=== PATIENT | male | born 1960 | race Caucasian/White ===

== ENCOUNTER 2017-08-03 10:40 | Outpatient (CLI) | payer MEDICARE ==
--- NOTE | 2017-08-03 12:43 | RAD ---
PA AND LATERAL CHEST: Indication: History of dyspnea. FINDINGS: There is mild cardiomegaly with mild pulmonary vascular congestion. No confluent airspace opacity or pleural effusion is noted. No acute osseous abnormality is evident. There an endograft stent seen wit hin the soft tissues of the left upper extremity. IMPRESSION: 1. Stable cardiomegaly and mild pulmonary vascular congestion. 2. No focal airspace consolidation, pleural effusion, or pneumothorax demonstrated. POS: LOIDA
== END 2017-08-03 10:41 | disposition home or self-care (01) ==
LOC: RAD 10:40
PROVIDERS: ATTEND Internal Medicine Pulmonary Disease
DX: R06.00 Dyspnea, unspecified (principal); I51.7 Cardiomegaly; J81.1 Chronic pulmonary edema
CPT/HCPCS: 71020

== ENCOUNTER 2019-12-14 16:40 | Inpatient (IN) | payer MEDICARE, OTHER ==
[~2019-12-14 16:40] MED LIST: Iopamidol-370 76% 500 ML 1 ML ONE
[2019-12-14] MEDS ORDERED: Naloxone HCl 2 mg/2 ml Syringe ONE (16:45)
[2019-12-14] MEDS ORDERED: Phytonadione 10 MG/ML AMP SLOW IVP SCH (17:00)
[2019-12-14 17:01] LABS: #Basophils 0.1 thou/uL (0.0-0.2); #Lymphocytes 2.6 thou/uL (1.20-3.40); #Monocytes 0.7 thou/uL (0.11-0.59); #Neutrophils 4.8 thou/uL (1.40-6.50); %Basophils 0.7 % (0.0-1.0); %Eosinophils 10.6 % (0.0-10.0); %Lymphocytes 28.7 % (21.0-51.0); %Monocytes 7.2 % (0.0-10.0); %Neutrophils 52.7 % (42.0-75.0); Hemoglobin 9.1 g/dL (14.0-18.0); Mean Corpuscular HGB CONC 32.6 g/dL (32.0-36.0); Mean Corpuscular Volume 91.9 fL (78.0-98.0); Mean Platelet Volume 6.8 fL (7.4-10.4); Platelet Count 203 thou/uL (130-400); RBC Distribution Width 18.7 % (11.5-14.5); Red Blood Cell (RBC) Count 3.05 mill/uL (4.70-6.10); White Blood Cell (WBC) Count 9.1 thou/uL (4.8-10.8)
[2019-12-14] MEDS ORDERED: Adacel (T-DAP) 0.5 ML SYRINGE ONE (17:11)
[2019-12-14 17:14] LABS: ALT (SGPT) 9 U/L (8-55); AST (SGOT) 11 U/L (5-34); Albumin 3.9 g/dL (3.5-5.0); Alkaline Phosphatase 172 U/L (40-110); Anion Gap 21 mmol/L (10-20); BUN (Urea Nitrogen) 79 mg/dL (8.4-25.7); Bilirubin, Total 0.8 mg/dL (0.2-1.2); Calc. Creatinine Clearance 0 mL/min (70-130); Calcium 8.9 mg/dL (7.8-10.44); Carbon Dioxide 19 mmol/L (22-29); Chloride 101 mmol/L (98-107); Estimated GFR-MDRD 3; Globulin 4.3 g/dL (2.4-3.5); Glucose 174 mg/dL (70-105); Potassium 5.8 mmol/L (3.5-5.1); Protein, Total 8.2 g/dL (6.0-8.3); Sodium 135 mmol/L (136-145)
[2019-12-14 17:19] LABS: INR-International Normal Ratio 2.1; PTT 39.7 SEC (22.9-36.1); Prothrombin Time 23.8 SEC (12.0-14.7)
--- NOTE | 2019-12-14 17:20 | RAD ---
XR Chest 1 View Portable HISTORY: Fall. Chest pain, arm pain, elbow pain COMPARISON: None FINDINGS: The heart size is borderline. The lungs are well expanded without lobar consolidation, pneu mothoraces, azra pulmonary edema or pleural effusions. IMPRESSION: No radiographic evidence of acute cardiopulmonary process.
--- NOTE | 2019-12-14 17:22 | RAD ---
Radiograph left humerus 2 views: DATE: 12/14/2019 Time: 4:27 PM HISTORY: 59-year-old male status post acute traumatic injury with open fracture. FINDINGS: There is a comminuted, significantly displaced fracture of the distal humeral metaphysis, extending t o the elbow joint. The humeral shaft is intact. Hemodialysis graft or stents within the arm. IMPRESSION: Acute, traumatic, displaced intra-articular fracture of the distal humerus
[2019-12-14] MEDS ORDERED: HUMAN PROTHROMBIN COMPLX IV SCH (17:30)
[2019-12-14] MEDS ORDERED: [UNRECOGNIZED DRUG - OTHER] IV SCH (17:30)
[2019-12-14] MEDS ORDERED: HUM PROTHROMBIN CPLX IV SCH (17:30)
[2019-12-14 17:35] LABS: Bilirubin Small (Negative); Blood, Urine Moderate (Negative); Glucose, Urine (Dipstick) Negative (Negative); Leukocyte Small (Negative); Nitrite Positive (Negative); Protein, Urine (Dipstick) 100 mg/dL (Neg-Trace); Urobilinogen 0.2 mg/dL (Less than 2)
[2019-12-14 17:37] LABS: Clarity Cloudy (Clear)
[2019-12-14 17:40] LABS: Squamous Epithelial 0-3 HPF (0-3)
[2019-12-14 17:41] LABS: Bacteria/HPF 2+ HPF (None Seen); Renal Epithelial 0-3 HPF (None Seen)
[2019-12-14 17:42] LABS: Other Microscopic Description Less than 2 mL rec'd
[2019-12-14] MEDS ORDERED: Ketorolac Tromethamine 30 MG/ML VIAL ONE (17:45)
[2019-12-14 17:53] LABS: CKMB 11.6 ng/mL (0-6.6)
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
[2019-12-14] MEDS ORDERED: Dextrose 5% in Water 1,000 ML IV PRN (18:09)
[2019-12-14] MEDS ORDERED: Morphine 2 MG/ML SYRINGE SLOW IVP PRN (18:09)
[2019-12-14] MEDS ORDERED: Dextrose 50% Abboject 50 ML SYRINGE SLOW IVP PRN (18:09)
[2019-12-14] MEDS ORDERED: Morphine 4 MG/ML VIAL SLOW IVP PRN (18:09)
[2019-12-14] MEDS ORDERED: hydrALAZINE 20 MG/ML VIAL SLOW IVP PRN (18:09)
[2019-12-14] MEDS ORDERED: traMADol HCl 50 MG TAB PO PRN (18:18)
--- NOTE | 2019-12-14 18:24 | CT ---
CT CERVICAL SPINE WITH CORONAL AND SAGITTAL REFORMATIONS: 12/14/19 HISTORY: Level I trauma. FINDINGS/IMPRESSION: There are degenerative changes in the facet joints. There is a linear lucency noted on a single imag e on the sagittal reconstructions involving the right inferior articular process of C7 (image 22, ser ies 701). The remainder of the cervical spine is otherwise intact without evidence of a compression f racture of the vertebral bodies or subluxation. No facet malalignment is seen. Discussed over the telephone with ER physician, Dr. Kem Dee at 6:08 p.m. POS: VARGAS
--- NOTE | 2019-12-14 18:26 | CT ---
CT THORAX WITH CONTRAST CT ABDOMEN WITH CONTRAST CT PELVIS WITH CONTRAST CT THORACIC SPINE WITH CONTRAST CT LUMBAR SPINE WITH CONTRAST: (Trauma protocol) DATE: 12/14/2019 HISTORY: Trauma to the chest, abdomen, and pelvis in 59-year-old male status post fall. Dr. Jeffery verbally gave this report by telephone to ER physician Dr. Dee at 6:22 PM 12/14/2019 TECHNIQUE: IV administration of iodinated contrast media. No oral contrast media. Single phase scans of thorax, abdomen, and pelvis. Sagittal reconstructions of thoracic and lumbar spine. FINDINGS: Lungs: No contusion. Nonspecific diffuse, homogeneous groundglass prominent interstitial markings. No consolidation. No obvious pulmonary mass. Pleura: No pneumothorax or hemothorax. Thoracic aorta: No dissection or rupture. Mediastinum: No hematoma. Enlarged subcarinal lymph nodes. Enlarged right paratracheal lymph node leyda suring 3 x 2 x 2 cm. Abdomen and pelvis: Liver: No laceration Spleen: No laceration. Enlarged. Pancreas: No surrounding fluid or fat stranding. Kidneys: No hydronephrosis or laceration. Bladder: Empty with Nicholson catheter. Abdominal aorta: No dissection or rupture. Small bowel: No dilation. Colon: No adjacent fat stranding. Free air: None. Free fluid: None. Appendix: Normal. Subcutaneous fat: 2 bilateral anterior patchy soft tissue attenuation lesions, of uncertain etiology. Skeleton: Ribs: No grossly displaced acute fracture. Sternum: No grossly displaced acute fracture. Thoracic spine: No acute compression fracture. Lumbar spine: No acute compression fracture. Pelvis: No grossly displaced acute fracture. No dislocation. IMPRESSION: 1. No evidence of acute traumatic injury within the thorax, abdomen, or pelvis. 2. Splenomegaly. 3. Mediastinal lymphadenopathy.
[2019-12-14] MEDS ORDERED: Acetaminophen 500 MG TAB PO SCH (18:30)
[2019-12-14 18:50] LABS: Hemoglobin 8.8 g/dL (14.0-18.0); Platelet Count 172 thou/uL (130-400)
[2019-12-14] MEDS ORDERED: cefTRIAXone\\ROCEPHIN 1 GM VIAL ONE (18:54)
[2019-12-14] MEDS ORDERED: Phytonadione 10 MG in Sodium Chloride 0.9% 50 ML IVPB SCH (19:30)
[2019-12-14 20:06] LABS: Prothrombin Time 22.5 SEC (12.0-14.7)
[2019-12-14 20:07] LABS: PTT 41.1 SEC (22.9-36.1)
[2019-12-14 20:15] LABS: Lactic Acid 0.8 mmol/L (0.5-2.2)
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
[2019-12-14 22:20] LABS: INR-International Normal Ratio 1.5; PTT 37.1 SEC (22.9-36.1); Prothrombin Time 18.2 SEC (12.0-14.7)
[2019-12-14 22:40] LABS: Troponin I 0.094 ng/mL (< 0.028)
--- NOTE | 2019-12-14 23:42 | HP ---
HISTORY OF PRESENT ILLNESS: Amari Stanley is a 59-year-old male patient, who is on Coumadin for atrial fibrillation, has aortic valve replacement plans next week. He has end-stage renal disease, on maintenance dialysis Tuesday, , Tuesday, dialyzed yesterday, followed by Dr. Bynum. He is HIV positive. Patient stepped off a curb, fell and injured his elbow. He was brought in by EMS. GCS 15 by report. On arrival, however, he was markedly obtunded and pressure was difficult to obtain in the 70s to 80s. He had been given 300 mcg of fentanyl IV by report. Narcan was administered. Dr. Dee was managing the airway with oral airway, which he tolerated and bag-mask. After Narcan, patient awoke, became responsive, did not require intubation. His pressure improved after fluid bolus. Patient reported that he normally runs pressure in the 90s. This is verified by his carbon plant grinder. The patient has an open fracture of his distal humerus. Dr. Carlisle is seeing him. Patient was evaluated and he had pressures in the 90s to 100, one unit blood was initiated, was slowed as it was felt this was his chronic blood pressure and he was mentating normally. PHYSICAL EXAMINATION: LUNGS: Clear to auscultation. CARDIAC: Regular rate and rhythm. No murmur or gallop. ABDOMEN: Soft and obese. EXTREMITIES: A left arm fistula upper arm, I could not palpate a thrill. I do not hear a bruit but had a good Doppler signal. ALLERGIES: PENICILLIN AND SULFA. SOCIAL HISTORY: Tobacco, none. Alcohol, none. MEDICATIONS: 1. Zolpidem. 2. Protonix. 3. Metoprolol. 4. Metolazone. 5. Insulin. 6. Gabapentin. 7. Furosemide. 8. Fluoxetine. 9. Dexilant. 10. Aspirin. PAST SURGICAL HISTORY: Left upper arm fistula placed elsewhere, not at this facility. Right great toe amputation. Tonsillectomy. PAST MEDICAL HISTORY: End-stage renal disease, on hemodialysis, Tuesday, , Tuesday; hypertension; hyperlipidemia; diabetes mellitus, type 2; obesity; aortic valve problems; atrial fibrillation, on anticoagulation. IMAGING: CAT scan of the chest, abdomen, and pelvis; cervical spine CT and brain CAT scan are normal. Chest x-ray, no acute findings. LABORATORIES: PT 23, given Kcentra and repeat PT/INR are still elevated at and 2. Hemoglobin 8.8, white count 9. Sodium 135, potassium 5.8, carbon dioxide 19, and BUN 79. ASSESSMENT AND PLAN: 1. Open fracture, left distal humerus. Dr. Carlisle is seeing this. He has washed out. He placed him on antibiotics. He will probably go undergo ORIF tomorrow. 2. Left upper arm dialysis fistula. 3. End-stage renal disease. Consult Nephrology. Recheck electrolytes tomorrow. 4. Aortic valve surgery plan next week. 5. Chronic anticoagulation, atrial fibrillation. 6. Human immunodeficiency virus positive. Job ID: [id number]
[2019-12-15] MEDS: Acetaminophen 500 MG TAB PO SCH ×5 (00:45→23:17)
[2019-12-15] MEDS ORDERED: CEFAZOLIN 2 GM in Premix Bag 1 BAG IVPB SCH ×2 (02:00→23:59)
[2019-12-15] MEDS ORDERED: CEFAZOLIN 1 GM VIAL SLOW IVP SCH (02:00)
[2019-12-15] MEDS: Sodium Chloride 0.9% 1,000 ML IV SCH ×3 (02:11→22:34)
--- NOTE | 2019-12-15 03:08 | PRG ---
DATE OF SERVICE: SUBJECTIVE: Patient was seen in the emergency department as he had not left to go to the operating room. Due to his elevated INR, his procedure is being put off until the morning. The patient sustained an open left distal humerus fracture and he is on Coumadin. He came in with an INR of 2.1 and Kcentra was given along with vitamin K. his repeat INR was only 2.0. This is likely drawn too early from the finish of his Kcentra. We will repeat it later this evening and again in the morning. The patient's partner will be contacted and verify that he does run with a chronically low systolic blood pressure, normally in the 90s, except after his dialysis, which happened to be yesterday when he stays in the 80s. PHYSICAL EXAMINATION: VITAL SIGNS: Stable with systolics in the mid to upper 80s with one reading in the 90s. Patient is afebrile. GENERAL: The patient is resting comfortably. He is asleep at the time of my visit in the ER. He would awaken and answer some very simple questions and then fall back asleep. It was difficult to tell if he was having rebound effects of the 300 mcg of fentanyl he was given or he was just exhausted from this traumatic event. LUNGS: Clear to auscultation bilaterally. HEART: Regular rate and rhythm. ABDOMEN: Soft, nontender with active bowel sounds. EXTREMITIES: Neurovascularly intact x4. Patient did move all of his digits on his left hand for me to include give me a thumbs up. His sensation appeared to be grossly intact. ASSESSMENT/PLAN: 1. Status post fall. 2. Open left distal humerus fracture. 3. History of end-stage renal disease, on dialysis. 4. History of severe coronary artery disease and valvular disease pending aortic valve replacement surgery. Plan for next week at [facility]. 5. Chronic anticoagulation for atrial fibrillation. 6. Human immunodeficiency virus positive. PLAN: Plan will be to continue supportive care. Antibiotics per Orthopedics. Pain control pulmonary toilet, gastritis, mechanical VTE prophylaxis. The patient is due for dialysis tomorrow. We will consult Nephrology as from review of records it appears he has been seen a couple of times by our senior housekeeper, here at [facility]. Job ID: [id number]
[2019-12-15 05:22] LABS: INR-International Normal Ratio 1.4; PTT 35.5 SEC (22.9-36.1); Prothrombin Time 17.2 SEC (12.0-14.7)
[2019-12-15 05:34] LABS: Band 4 % (5-11); Eosinophils 4 % (0-10); Hemoglobin 8.1 g/dL (14.0-18.0); Hypochromia SLIGHT = 6-15 cells (100X) (0-5/hpf); Lymphocytes 13 % (21-51); MDiff Complete? YES; Mean Corpuscular HGB CONC 33.6 g/dL (32.0-36.0); Mean Corpuscular Hemoglobin 30.7 pg (27.0-31.0); Mean Corpuscular Volume 91.4 fL (78.0-98.0); Monocytes 6 % (0-10); Neutrophil 73 % (42-75); Platelet Count 168 thou/uL (130-400); Platelet Morphology Comment Appears Adequate; RBC Distribution Width 18.5 % (11.5-14.5); Red Blood Cell (RBC) Count 2.63 mill/uL (4.70-6.10); White Blood Cell (WBC) Count 8.8 thou/uL (4.8-10.8)
[2019-12-15 05:41] LABS: Anion Gap 22 mmol/L (10-20); BUN (Urea Nitrogen) 86 mg/dL (8.4-25.7); Calc. Creatinine Clearance 9 mL/min (70-130); Calcium 8.3 mg/dL (7.8-10.44); Carbon Dioxide 17 mmol/L (22-29); Chloride 103 mmol/L (98-107); Estimated GFR-MDRD 3; Glucose 149 mg/dL (70-105); Magnesium 2.5 mg/dL (1.6-2.6); Sodium 135 mmol/L (136-145)
[2019-12-15 05:44] LABS: Potassium 6.7 mmol/L (3.5-5.1)
[2019-12-15] MEDS ORDERED: Calcium Gluconate 4.6 MEQ in Sodium Chloride 0.9% 100 ML IVPB SCH (06:02)
[2019-12-15] MEDS ORDERED: Dextrose 50% Abboject 50 ML SYRINGE SLOW IVP SCH (06:10)
[2019-12-15] MEDS ORDERED: Insulin Regular 300 UNITS/3 ML VIAL IVP SCH (06:15)
[2019-12-15 07:02] LABS: Anion Gap 23 mmol/L (10-20); BUN (Urea Nitrogen) 85 mg/dL (8.4-25.7); Calc. Creatinine Clearance 9 mL/min (70-130); Calcium 8.2 mg/dL (7.8-10.44); Carbon Dioxide 17 mmol/L (22-29); Chloride 104 mmol/L (98-107); Estimated GFR-MDRD 3; Glucose 134 mg/dL (70-105); Sodium 137 mmol/L (136-145)
[2019-12-15 07:10] LABS: Potassium 6.6 mmol/L (3.5-5.1)
--- NOTE | 2019-12-15 07:37 | RAD ---
Radiograph left humerus 2 views: DATE: 12/15/2019 Time: 7.:11 AM HISTORY: Acute traumatic distal humeral fracture area COMPARISON: 12/14/2019 humerus radiograph. FINDINGS: Very comminuted fracture of distal radial metaphysis. Severe, greater than 200% shaft width medial di splacement of the medial fracture fragment relative to the diaphysis, along with medial displacement of the radius and ulna relative to the humerus. Disruption of the elbow joint. Posterior splint has been placed. The positioning is different on the current study compared to the previous, and therefore the degree of change in alignment is difficult to ascertain. For example, the re was no true AP view on the prior study,. IMPRESSION: Status post splinting of the severely comminuted, severely displaced, intra-articular fracture of the distal humerus involving the elbow joint with subluxation.
[2019-12-15] MEDS ORDERED: Hydrocortisone Sod Succ/PF 100 mg/2 ml Vial IVP SCH ×2 (08:30→18:00)
[2019-12-15] MEDS ORDERED: Fentanyl 100 MCG/2 ML VIAL ONE ×2 (09:39→21:30)
[2019-12-15] MEDS: Fentanyl 100 MCG/2 ML VIAL SLOW IVP PRN ×2 (09:43→23:13)
[2019-12-15] MEDS ORDERED: Norepinephrine 8 MG/0.9% NS 250 ML IVPB SCH (09:48)
[2019-12-15 10:36] LABS: Anion Gap 23 mmol/L (10-20); BUN (Urea Nitrogen) 86 mg/dL (8.4-25.7); Calc. Creatinine Clearance 9 mL/min (70-130); Calcium 8.6 mg/dL (7.8-10.44); Carbon Dioxide 17 mmol/L (22-29); Chloride 103 mmol/L (98-107); Estimated GFR-MDRD 3; Glucose 171 mg/dL (70-105); Potassium 6.3 mmol/L (3.5-5.1); Sodium 137 mmol/L (136-145)
[2019-12-15] MEDS ORDERED: Albumin 25% 25 GM/100 ML BOT IVPB PRN (11:52)
[2019-12-15 11:54] LABS: HBSAg Index 0.19 S/CO (0-0.99); Hep B Core Total Ab Non-Reactive (NonReactive); Hep B Core Total Index 0.18 S/CO (0-0.79); Hep B Surf Ag Non-Reactive S/CO (NonReactive); Hep C IgG Ab Non-Reactive (NonReactive)
[2019-12-15] MEDS ORDERED: PHENYLEPHRINE-NS 100 MCG/ML 10 ML SYRINGE ONE (11:55)
[2019-12-15] MEDS ORDERED: Rocuronium Bromide 10 MG/ML (10ML VIAL) ONE (11:55)
[2019-12-15 11:57] LABS: HBSAB Concentration 38.44 mIU/mL; Hep B Surf AB Reactive (NonReactive)
--- NOTE | 2019-12-15 13:33 | PRG ---
DATE OF SERVICE: 12/15/2019 SUBJECTIVE: Mr. Stanley had low blood pressure problems last night and was transferred to telemetry then the ICU. He is mentating normally. Pressure has been in the 80s to 90s. The patient states that when he dialyzes, his pressures are in the 70s to 80s or 90s. Normally, he is just over 100. The patient however is mentating normally. This morning, his hemoglobin is 8.1, white count 8.8, platelet count 168,000. Potassium is 6.6, early this morning repeat is 6.3. I attempted to dialysis using his left upper arm fistula, was unable to access as this is thrombosed. I just placed a femoral vein Trialysis catheter. Trialysis catheter can be used for IV access and blood draws. It will serve him for dialysis. OBJECTIVE: LUNGS: Clear to auscultation. CARDIAC: Regular rate and rhythm. ABDOMEN: Soft, obese. ASSESSMENT AND PLAN: 1. Open left humeral fracture. I discussed with Dr. Carlisle with a patent fistula, the tourniquet should not be used, but now that the fistula is thrombosed, a tourniquet can be used intraoperatively. Orthopedics is planning ORIF of his left humerus fracture later today. 2. Patient at [facility], follow up with Dr. Lowell Suresh, plan aortic valve procedure in the next week or two. He is on anticoagulation, atrial fibrillation. He has had a cardiac cath and the patient tells me he does not have any significant coronary artery disease. I have discussed this with Dr. Lowell Suresh and he is updated on the patient's status. 3. Thrombosed fistula, left arm. This fistula was placed in [facility] 6 to 7 years ago. He has had multiple interventions in [place] to maintain its patency. He has had stents placed. Currently the fistula is thrombosed and a tourniquet can be used intraoperatively during the orthopedic procedure. After the orthopedic procedure, Interventional Radiology at [facility] should be requested to do a fistulogram to see if they can salvage this fistula. If they cannot, he may need a cuffed tunneled dialysis catheter just to give him dialysis access. Currently he has a temporary noncuffed femoral vein catheter. 4. Dialysis fistula left arm. He has had multiple interventions. Looking at his chest x-ray, I do not see any stents in the central circulation. He reports having had stents in the left upper arm fistula. We will obtain ultrasound vein mapping of the right arm to assess his right arm for dialysis access. We will ask nurses not to access the right arm and use the left groin dialysis catheter for IV access and blood draws and save the veins in the right arm for future dialysis access as he has a failing fistula left arm. I have told the patient he can follow up with me in the future should he need a new fistula or he can follow up with his other dialysis access physicians out of town. 5. HIV positive. 6. Transfer to [facility]. 7. Normally low blood pressure, patient mentating normal. He is anemic. We will give him blood during dialysis as well address his hyperkalemia. This will optimize him for ORIF of his left humerus fracture later today or tomorrow per Ortho discussion with Dr. Carlisle. Job ID: [id number]
--- NOTE | 2019-12-15 13:34 | CON ---
DATE OF CONSULTATION: 12/15/2019 CONSULTING PHYSICIAN: John Ybarra PA-C REASON FOR CONSULTATION: End-stage renal disease evaluation. REASON FOR ADMISSION: Fall and elbow fracture. HISTORY OF PRESENT ILLNESS: This is a 59-year-old male with history of end-stage renal disease and type 2 diabetes, came to the hospital after a fall and left elbow pain on and is being evaluated. He gets dialysis Tuesday, , and Tuesday. Apparently, his fistula is not working and is getting temporary dialysis catheter. Also, he will be moved to [facility] after the surgery today. Surgery is also planned today. PAST MEDICAL HISTORY: Positive for type 2 diabetes, end-stage renal disease, and gastroesophageal reflux disease. PAST SURGICAL HISTORY: Dialysis access placement. HOME MEDICATIONS: Reviewed. ALLERGIES: 1. SULFA. 2. PENICILLIN. SOCIAL HISTORY: No smoking, alcohol, or illicit drugs. FAMILY HISTORY: No history of kidney disease. REVIEW OF SYSTEMS: CONSTITUTIONAL: Negative for weight loss or gain, ability to conduct usual activities. SKIN: Negative for rash, itching. EYES: Negative for double vision, pain. ENT/MOUTH: Negative for nose bleeding, neck stiffness, pain, tenderness. CARDIOVASCULAR: Negative for palpitations, dyspnea on exertion, orthopnea. RESPIRATORY: Negative for shortness of breath, wheezing, cough, hemoptysis, fever or night sweats. GASTROINTESTINAL: Negative for poor appetite, abdominal pain, heartburn, nausea, vomiting, constipation, or diarrhea. GENITOURINARY: Negative for urgency, frequency, dysuria, nocturia. MUSCULOSKELETAL: Negative for pain, swelling. NEUROLOGIC/PSYCHIATRIC: Negative for anxiety, depression. ALLERGY/IMMUNOLOGIC: Negative for skin rash, bleeding tendency. PHYSICAL EXAMINATION: GENERAL: This is a well-built male, in no apparent distress. VITAL SIGNS: Temperature 98.7, pulse 105, respiratory rate 20, blood pressure 99/56. HEENT: Atraumatic and normocephalic. Oral mucosa is moist. NECK: Supple. CV: S1 and S2. Rate and rhythm regular. RESPIRATORY: Clear. GI: Abdomen is soft. MUSCULOSKELETAL: 1+ edema. DERMATOLOGIC: No skin rash. NEUROLOGIC: Alert and awake. PSYCHIATRIC: Normal mood and affect. LABORATORY DATA: Hemoglobin is 8.1. Potassium is 6.3, BUN is 86, creatinine 15.7. ASSESSMENT AND PLAN: 1. End-stage renal disease. We will continue on dialysis. 2. Edema. 3. History of hypertension. 4. Chronic anemia. 5. Hyperphosphatemia. We will continue on dialysis as tolerated. Thank you for the consult. Job ID: [id number]
[2019-12-15 15:07] LABS: Hemoglobin 9.7 g/dL (14.0-18.0); Platelet Count 149 thou/uL (130-400)
[2019-12-15 15:33] LABS: Anion Gap 20 mmol/L (10-20); BUN (Urea Nitrogen) 52 mg/dL (8.4-25.7); Calc. Creatinine Clearance 14 mL/min (70-130); Calcium 8.8 mg/dL (7.8-10.44); Carbon Dioxide 22 mmol/L (22-29); Chloride 101 mmol/L (98-107); Estimated GFR-MDRD 6; Glucose 150 mg/dL (70-105); Potassium 4.2 mmol/L (3.5-5.1); Sodium 139 mmol/L (136-145)
[2019-12-15] MEDS: CEFAZOLIN 2 GM in Premix Bag 1 BAG IVPB SCH ×3 (16:45→22:28)
[2019-12-15] MEDS ORDERED: SUGAMMADEX SODIUM 500 MG/5 ML VIAL ONE (17:05)
[2019-12-15] MEDS ORDERED: Gabapentin 100 MG CAP PO PRN (17:06)
[2019-12-15] MEDS ORDERED: Simethicone Chewable 80 MG TAB PO PRN (18:07)
[2019-12-15] MEDS ORDERED: hydrOXYzine 10 MG TAB PO PRN (18:07)
[2019-12-15] MEDS ORDERED: Midodrine HCl 5 MG TAB PO SCH (18:15)
--- NOTE | 2019-12-15 20:33 | RAD ---
LEFT ELBOW TWO VIEWS: 12/15/19 HISTORY: Comminuted distal humeral fracture. FINDINGS/IMPRESSION: Two spot fluoroscopic intraoperative images of the left elbow demonstrate interval reduction and int ernal fixation of the fractures noted on the earlier exam of same date. Plate and screws are seen in the distal humerus and a screw is seen in the proximal ulna/olecranon. POS: LOIDA
[2019-12-15] MEDS ORDERED: Promethazine HCl 25 MG/ML VIAL SLOW IVP PRN (20:55)
[2019-12-15] MEDS ORDERED: Ondansetron HCl/PF 4 MG/2 ML Vial IVP PRN (20:55)
[2019-12-15] MEDS ORDERED: Promethazine HCl 25 MG/ML VIAL IM PRN (20:55)
[2019-12-15] MEDS ORDERED: Norepinephrine 4 MG/4 ML VIAL ONE ×2 (20:59→21:00)
[2019-12-15] MEDS ORDERED: Metoprolol Tartrate 25 MG TAB PO SCH (21:00)
[2019-12-15] MEDS ORDERED: Non-Formulary Item 1 EACH (Insulin Glargine,Hum.Rec.Anlog [Basaglar Kwikpen U-100] 65 UNI SQ SCH (21:00)
[2019-12-15] MEDS ORDERED: Cyclobenzaprine 10 MG TAB PO PRN (21:22)
[2019-12-15] MEDS: Atorvastatin Calcium 40 MG TAB PO SCH (22:26)
[2019-12-15] MEDS: Insulin Glargine 65 UNITS in Pre-Filled Syringe SC SCH (22:27)
[2019-12-15] MEDS: Montelukast Sodium 10 mg Tablet PO SCH (22:27)
[2019-12-15] MEDS: Hydrocortisone Sod Succ/PF 100 mg/2 ml Vial IVP SCH (22:27)
[2019-12-15 22:31] LABS: #Eosinphils 0.3 thou/uL (0.0-0.7); #Monocytes 0.6 thou/uL (0.11-0.59); #Neutrophils 8.2 thou/uL (1.40-6.50); %Basophils 0.3 % (0.0-1.0); %Monocytes 5.6 % (0.0-10.0); %Neutrophils 81.1 % (42.0-75.0); Hemoglobin 9.3 g/dL (14.0-18.0); Mean Corpuscular HGB CONC 33.9 g/dL (32.0-36.0); Mean Corpuscular Hemoglobin 30.8 pg (27.0-31.0); Mean Corpuscular Volume 90.7 fL (78.0-98.0); Mean Platelet Volume 6.7 fL (7.4-10.4); Platelet Count 142 thou/uL (130-400); RBC Distribution Width 18.1 % (11.5-14.5); Red Blood Cell (RBC) Count 3.03 mill/uL (4.70-6.10); White Blood Cell (WBC) Count 10.1 thou/uL (4.8-10.8)
[2019-12-15 22:49] LABS: Anion Gap 18 mmol/L (10-20); BUN (Urea Nitrogen) 43 mg/dL (8.4-25.7); Calc. Creatinine Clearance 14 mL/min (70-130); Calcium 8.4 mg/dL (7.8-10.44); Carbon Dioxide 23 mmol/L (22-29); Chloride 101 mmol/L (98-107); Estimated GFR-MDRD 6; Glucose 172 mg/dL (70-105); Potassium 4.4 mmol/L (3.5-5.1); Sodium 138 mmol/L (136-145)
[2019-12-15 23:00] LABS: Phosphorus 8.1 mg/dL (2.3-4.7)
[2019-12-15] MEDS: Furosemide 80 MG TAB PO SCH (23:13)
--- NOTE | 2019-12-16 00:17 | PRG ---
DATE OF SERVICE: 12/15/2019 SUBJECTIVE: The patient's hospital day #2. He is immediately postop from open reduction and internal fixation of his left distal humerus fracture. The patient has a significant history of end-stage renal disease, requiring dialysis, which prior to dialysis today. He was hyperkalemic and was unable to go to the OR at this scheduled time. The patient was able to undergo dialysis and eventually made it to the operating room. He had multiple episodes of hypotension prior to surgery and intraoperatively, and once he arrived at the critical care unit, he was on Levophed at 5 mcg per minute, which brought his blood pressure systolic to 109. The patient also suffers from atrial fibrillation, requiring anticoagulation, but also delayed his surgery until today. OBJECTIVE: VITAL SIGNS: Heart rate 108, blood pressure 109/70, respirations 17, oxygen saturation 98% on 2 L via nasal cannula, temperature is 99.9. GENERAL: The patient is resting comfortably in bed. He is very sleepy as he has just returned from the operating room. He will awaken and was able to follow commands and interact with the nurses. LUNGS: Had some scattered rhonchi bilaterally that clear with coaching and deep inspiration and cough. HEART: Irregularly irregular consistent with his atrial fibrillation. ABDOMEN: Soft, nontender. EXTREMITIES: Neurovascularly intact x4. Left upper extremity is in a clean, dry, and intact long posterior splint. He is moving all digits and has sensation in all his digits. ASSESSMENT AND PLAN: 1. Status post ground level fall. 2. Open left distal humerus fracture, status post open reduction and internal fixation of same to include irrigation and debridement. 3. End-stage renal disease, on dialysis. 4. History of severe coronary artery disease and valvular disease, pending aortic valve replacement. 5. Atrial fibrillation, requiring anticoagulation. 6. Human immunodeficiency virus positive. 7. Hyperkalemia, resolved after dialysis. 8. [id number] anemia. The patient was transfused 2 units of packed red blood cells. PLAN: Plan will be to continue supportive care. Encourage pulmonary toilet. Monitor his electrolytes. We will begin wean of his vasopressor. Job ID: [id number]
[2019-12-16] MEDS: Ondansetron ODT 4 MG TAB PO PRN (03:37)
[2019-12-16 04:32] LABS: #Eosinphils 0.2 thou/uL (0.0-0.7); #Lymphocytes 0.8 thou/uL (1.20-3.40); #Monocytes 0.6 thou/uL (0.11-0.59); #Neutrophils 7.9 thou/uL (1.40-6.50); %Basophils 0.5 % (0.0-1.0); %Eosinophils 1.7 % (0.0-10.0); %Lymphocytes 8.2 % (21.0-51.0); %Monocytes 6.1 % (0.0-10.0); %Neutrophils 83.5 % (42.0-75.0); Hemoglobin 8.7 g/dL (14.0-18.0); Mean Corpuscular HGB CONC 33.5 g/dL (32.0-36.0); Mean Corpuscular Hemoglobin 30.4 pg (27.0-31.0); Mean Corpuscular Volume 90.7 fL (78.0-98.0); Platelet Count 144 thou/uL (130-400); Red Blood Cell (RBC) Count 2.85 mill/uL (4.70-6.10); White Blood Cell (WBC) Count 9.5 thou/uL (4.8-10.8)
[2019-12-16 04:56] LABS: Anion Gap 19 mmol/L (10-20); BUN (Urea Nitrogen) 47 mg/dL (8.4-25.7); Calc. Creatinine Clearance 14 mL/min (70-130); Calcium 8.2 mg/dL (7.8-10.44); Carbon Dioxide 22 mmol/L (22-29); Chloride 100 mmol/L (98-107); Estimated GFR-MDRD 5; Glucose 186 mg/dL (70-105); Phosphorus 8.4 mg/dL (2.3-4.7); Potassium 4.4 mmol/L (3.5-5.1); Sodium 137 mmol/L (136-145)
--- NOTE | 2019-12-16 05:22 | OP ---
DATE OF PROCEDURE: 12/15/2019 PREOPERATIVE DIAGNOSES: 1. End-stage renal disease, left arm fistula placed 6 or 7 years ago out of town, multiple interventions with stents in the arm portion of fistula placed [facility] in [place], thrombosed left arm fistula, dialysis fistula malfunction, hyperkalemia. 2. Open left humeral fracture and need of ORIF. 3. Aortic valve stenosis, planning aortic valve procedure by Dr. Lowell Suresh in the next few weeks, on oral anticoagulation status post Kcentra reversal last night. 4. Morbid obesity. POSTOPERATIVE DIAGNOSES: 1. End-stage renal disease, left arm fistula placed 6 or 7 years ago out of town, multiple interventions with stents in the arm portion of fistula placed [facility] in [place], thrombosed left arm fistula, dialysis. He has a malfunction, hyperkalemia. 2. Open left humeral fracture and need of ORIF. 3. Aortic valve stenosis, planning aortic valve procedure by Dr. Lowell Suresh in the next few weeks, on oral anticoagulation status post Kcentra reversal last night. 4. Morbid obesity. PROCEDURE PERFORMED: Left femoral vein Trialysis catheter. ANESTHESIA: 1% Xylocaine. DESCRIPTION OF PROCEDURE: With the patient at bedside, left groin, abdomen, and thigh prepared with ChloraPrep and draped in routine fashion. My orthotics assistant had retracted his pannus for visualization of his groin. His obesity made access difficult. Local anesthetic was infiltrated in the skin and subcutaneous tissue. 1% Xylocaine was used. Trocar catheter accessed the femoral vein, threading a J-wire. Seldinger technique used. Using a small and medium sized dilators and placed in the distal port of the Trialysis catheter, secured with 3-0 nylon suture and J-wire removed. Each IV access port aspirated blood, flushed with heparinized saline solution, hep flush solution. Each dialysis port aspirated blood and connected to the dialysis machine. Sterile dressing applied. Job ID: [id number]
[2019-12-16] MEDS: Acetaminophen 500 MG TAB PO SCH ×4 (05:52→23:40)
[2019-12-16] MEDS: CEFAZOLIN 2 GM in Premix Bag 1 BAG IVPB SCH ×2 (05:52→16:17)
[2019-12-16] MEDS: Hydrocortisone Sod Succ/PF 100 mg/2 ml Vial IVP SCH ×4 (05:52→23:40)
[2019-12-16] MEDS: HumaLOG 300 UNITS/3 ML VIAL SC PRN ×2 (06:05→23:39)
[2019-12-16 06:15] LABS: INR-International Normal Ratio 1.3; PTT 35.1 SEC (22.9-36.1); Prothrombin Time 16.3 SEC (12.0-14.7)
[2019-12-16] MEDS: Mometasone 200 MCG/Formoterol 5 MCG 120 PUFF INHALER INH SCH ×2 (07:43→18:50)
[2019-12-16] MEDS: Furosemide 80 MG TAB PO SCH ×2 (07:52→20:37)
[2019-12-16] MEDS ORDERED: HYDROcodone/Acetaminophen 5/325 mg Tablet PO PRN ×2 (08:02→14:12)
--- NOTE | 2019-12-16 09:10 | ULT ---
ULTRASOUND VESSEL MAPPING DIALYSIS ACCESSS: Date; 12/16/2019 HISTORY: End-stage renal disease. COMPARISON: None. TECHNIQUE: Real-time Suresh scale and color Doppler and spectral analysis of the right upper extremity arterial an d venous system performed. FINDINGS: RIGHT UPPER EXTREMITY BRACHIAL ARTERY: 0.4 cm RADIAL ARTERY: 0.19 cm ULNAR ARTERY: 0.16 cm CEPHALIC VEIN Proximal Arm: 0.54 cm Mid Arm: 0.55 cm Distal Arm: 0.54 cm Antecubital Fossa: 0.77 cm Proximal Forearm: 0.39 cm Mid Forearm: 0.38 cm Distal Forearm: 0.33 cm BASILIC VEIN Proximal Arm: 0.43 cm Mid Arm: 0.61 cm Distal Arm: 0.56 cm Antecubital Fossa: 0.41 cm Proximal Forearm: 0.19 cm Mid Forearm: 0.25 cm Distal Forearm: 0.22 cm The right internal jugular and subclavian veins are patent. Axillary vein is patent. IMPRESSION: Vascular size as above. POS: HOME
[2019-12-16] MEDS: HumaLOG 300 UNITS/3 ML VIAL SC SCH ×3 (10:21→17:28)
[2019-12-16] MEDS: Icosapent Ethyl 1 GM CAPSULE PO SCH ×2 (10:21→17:21)
[2019-12-16] MEDS: Sevelamer Carbonate 800 MG TAB PO SCH ×3 (10:21→17:19)
[2019-12-16] MEDS: FLUoxetine HCl 20 MG CAP PO SCH (10:29)
[2019-12-16] MEDS: Gabapentin 300 MG CAP PO SCH (10:29)
[2019-12-16] MEDS: Folic Acid/Vit B Comp W-C PO SCH (10:30)
[2019-12-16] MEDS: Insulin Glargine 65 UNITS in Pre-Filled Syringe SC SCH ×3 (11:07→23:39)
--- NOTE | 2019-12-16 11:44 | PRG ---
DATE OF SERVICE: 12/16/2019 Amari Stanley is doing well today. I have spoken with the patient, and I have also talked to his partner, Basil. The patient has had a left arm fistula established 6 to 7 years ago. He has been seeing a vascular surgeon in [place] intermittently for interventions to maintain its patency. He has a long segmental stent. Javier Willis MD, vasculature surgeon in [place], saw him last, performed intervention of his fistula and told him that this fistula is failing and it would not be worth and that the patient should think about establishing another fistula. I have talked to the patient and Basil regarding this, and considering this, we will discontinue Interventional Radiology consult for intervention tomorrow and instead plan a new right arm fistula. Ultrasound vein mapping of right arm reveals good veins for fistula, possibly [place] if the vein has not been ruined by IV access in this hospitalization as he had a mid right forearm IV on admission. We will plan placement of a hemodialysis catheter and a right arm fistula tomorrow or Tuesday, pending OR availability. We will plan this under regional anesthesia and TIVA. We would not resume his anticoagulation for that reason. The patient has intermittent blood pressure problems in the 80s to 90s, and thus, will be left on in the ICU. He has a planned TAVR procedure by Dr. Lowell Suresh in the next few weeks. He had a cardiac catheterization, revealing no significant coronary artery disease, but just severe aortic valve disease, for which he is undergoing a percutaneous treatment in the next [address] Lowell Suresh. I have discussed with the patient and his partner, Basil, that the patient after ORIF of left humerus, he will have poor use of his left arm and for 12 to 24 hours after his surgery, he will have poor use of his right arm after the regional anesthesia and he will need excess help and we will observe in the hospital for a day or two after the surgery until he can be discharged home. Of note is that the patient requested to be transferred to [facility], but the orthopedic surgeon refused acceptance as he was not comfortable taking care of his left humerus fracture, thus it was performed here by Dr. Carlisle. Hemoglobin 8.7, white count 9.5. Electrolytes are normal except for changes consistent with end-stage renal disease. No other complaints. HIV status noted. Job ID: [id number]
[2019-12-16] MEDS ORDERED: Albumin 25% 25 GM/100 ML BOT IVPB SCH (12:43)
[2019-12-16] MEDS ORDERED: Albumin 25% 25 GM/100 ML BOT IVPB PRN (12:52)
[2019-12-16] MEDS ORDERED: HYDROcodone/Acetaminophen 5/325 mg Tablet PO SCH ×2 (14:00→18:00)
--- NOTE | 2019-12-16 14:49 | OP ---
DATE OF PROCEDURE: 12/15/2019 PREOPERATIVE DIAGNOSIS: Grade 1 open severely comminuted intra-articular distal humerus fracture, left. POSTOPERATIVE DIAGNOSIS: Grade 1 open severely comminuted intra-articular distal humerus fracture, left. PROCEDURES PERFORMED: 1. Irrigation open reduction and internal fixation of left distal humerus. 2. Irrigation and debridement of left open distal humerus fracture. ANESTHESIA: General. COMPRESSED [employer] WORKER: Wayne Herndon PA-C TOURNIQUET TIME: 130 minutes at 250 mmHg. IMPLANTS: Synthes System was used with a posterolateral distal humeral plate and an extended medial distal humeral plate 2.7/3.5 mm variable angle. COMPLICATIONS: None. DRAINS: None. SPECIMENS: None. OUTCOME: Satisfactory stabilization of comminuted left distal humerus fracture. INDICATIONS FOR PROCEDURE: The patient is a 59-year-old gentleman, status post fall upon curb, sustaining a grade 1 open severely comminuted left distal humerus fracture. The patient came in with an INR of 2.1 and unfortunately, we had to wait for the INR to be reversed. During the process of reversal, his potassium robert to 6.7, necessitating dialysis before we can safely proceed with general anesthetic. The patient now taken to the operating room for open reduction and internal fixation. Informed consent has been obtained. I believe, all questions have been answered. DESCRIPTION OF PROCEDURE: The patient was brought to the operating room and a time-out performed followed by induction of general anesthesia. Next, he was positioned in the right lateral decubitus position and a sterile prep and drape was performed of the left upper extremity. The limb was exsanguinated with Esmarch bandage, tourniquet inflated to 250 mmHg. A midline posterior incision was made following the distal half of the humerus and then curving around the tip of the olecranon after skin was sharply incised. Dissection was carried down bluntly exposing the triceps muscle. Next, the ulnar nerve was dissected free and isolated. Next, an olecranon osteotomy using a chevron type cut was performed. This was then used to peel back to the triceps, exposing the distal humerus and distal humeral shaft. Care was taken to identify and protect the ulnar nerve during the course of this procedure. Upon exposure of this fracture, he was found to have severe comminution. The entire lateral column was essentially fragmented into many, many very small pieces that were not capable of holding any type of screw or hardware stabilization. This wound was then irrigated with 2 L of normal saline using Pulsavac. He was found to have a small laceration with surrounding abrasion at the posterolateral aspect of the elbow. This being the open wound. This was thoroughly irrigated with Pulsavac. No foreign material was encountered. Following the debridement, attention was placed to reconstruction. I started on the medial column of the elbow as this was only broken into 4 pieces. This was able to be pieced together and held in place provisionally with a combination of bone tenaculums and K-wires. Once done, the attention was placed on the lateral column. This too was somewhat pieced together with multiple small areas of missing bone. Once it was brought to a reasonable level and held in place with K-wires, provisional x-ray was obtained that showed gnosticism of gross architecture of the distal humerus. It should be noted that the fossa was severely comminuted and this bone really not able to be reconstructed. This bone was saved on the back table to be used for a local bone graft. Once the K-wire stabilization was achieved, initial posterolateral column plate was applied. This was held in place with 3.5 mm cortical screw proximally and then multiple small locking screws distally capturing some of the articular segment. The articular surface distally was comminuted into 5 pieces. This had been reconstructed and held in place with two K-wires along with reconstruction of both columns. Once the posterolateral plate was applied, a medial plate was also applied with the distal more screws going from the medial column capturing the distal humeral articular segment as well. Additional cortical screws were then placed proximal to the main fracture. With completion of this, the overall gnosticism of the distal humerus, was such that the gross architecture was restored. The articular surface was nicely reconstructed, but he was still missing the central fossa bone. As such, the previously removed cancellous bone fragments were morselized and these were packed to help reinforce the medial and lateral columns. At the completion of this, final AP and lateral C-arm images were obtained. The wound was again irrigated with normal saline. Next, the olecranon osteotomy was repaired using a 6.5 cannulated screw in an intramedullary canal fashion. This achieved excellent compression across the osteotomy site with stable fixation. The wound again irrigated. Then, wound closure performed. A fascial closure was achieved over the ulnar nerve and then fascial closure at the lateral triceps also performed. This was followed by 2-0 Vicryl and then lexi for the skin and a loose nylon suture for the small open wound. The arm was dressed with Xeroform and gauze and then placed in a posterior fiberglass splint. The tourniquet was let down prior to the completion of hardware placement with total time of 130 minutes. There were no complications. The patient did tolerate the procedure well. Job ID: [id number]
--- NOTE | 2019-12-16 16:15 | PRG ---
DATE OF SERVICE: 12/16/2019 SUBJECTIVE: Patient was seen and examined at bedside and overnight events noted. Patient denies any shortness of breath or chest pain or palpitation. No history of nausea or vomiting or diarrhea or fever or chills or cramps. OBJECTIVE: GENERAL: This is an obese male, in no apparent distress. VITAL SIGNS: Temperature 97.9. Heart rate 126. Respiratory rate 18. Blood pressure 105/73. HEENT: Atraumatic, normocephalic. Oral mucosa is moist. NECK: Supple. CARDIOVASCULAR: S1, S2 heard. Rate and rhythm regular. RESPIRATORY: Clear to auscultation. GASTROINTESTINAL: Abdomen is soft. MUSCULOSKELETAL: No tenderness. No edema. DERMATOLOGIC: No skin rash. NEUROLOGIC: Alert and awake and oriented x3. No focal neurologic deficits. Moving all the extremities. PSYCHIATRIC: Mood and affect normal. LABORATORY DATA: Potassium 4.4, BUN is 47, and creatinine is 10.4. ASSESSMENT AND PLAN: 1. End-stage renal disease. We will continue dialysis. Plan is to have extra dialysis today for fluid removal. 2. Hypotension. We will use albumin. 3. Edema. 4. Chronic anemia. 5. Hyperphosphatemia. Monitor labs. Continue dialysis as tolerated. Job ID: [id number]
[2019-12-16] MEDS: Darunavir/Cobicistat [Prezcobix 800 Mg-150 Mg Tablet] PO SCH (17:25)
[2019-12-16] MEDS ORDERED: HYDROcodone/Acetaminophen 7.5/325 mg Tablet PO PRN (20:22)
[2019-12-16] MEDS: Atorvastatin Calcium 40 MG TAB PO SCH (20:37)
[2019-12-16] MEDS: Heparin 5,000 UNITS/ML VIAL SC SCH (20:37)
[2019-12-16] MEDS: Montelukast Sodium 10 mg Tablet PO SCH (20:37)
[2019-12-16] MEDS: DOLUTEGRAVIR SODIUM 50 MG PO SCH (20:38)
--- NOTE | 2019-12-16 22:26 | PRG ---
DATE OF SERVICE: SUBJECTIVE: The patient is hospital day 3. He remains in a critical care unit, status post ground level fall, in which he sustained a left open distal humerus fracture. Yesterday, he underwent open reduction and internal fixation of same to include irrigation and debridement. Today, he underwent dialysis and he is being weaned off his Levophed. At the time of my visit, his pain was moderately controlled. We will make adjustments to his pain regimen. He is tolerating a diet and has been able to be out of bed to a chair. PHYSICAL EXAMINATION: VITAL SIGNS: Stable. The patient is still having some tachycardia, likely related to his pain, but also he revealed us that he stays above 100, especially after dialysis and his fondant machine operator is aware of this in light of his atrial fibrillation also. GENERAL: The patient is resting comfortably in bed. He is awake, alert, and oriented, this is the best I have seen him so far. RESPIRATIONS: Nonlabored. LUNGS: Clear to auscultation bilaterally. HEART: Irregularly irregular consistent with his atrial fibrillation. ABDOMEN: Soft, nontender with active bowel sounds. EXTREMITIES: Neurovascularly intact x4. Left upper extremity postop dressing is clean, dry, and intact to include this splint. ASSESSMENT: 1. Status post ground level fall. 2. Status post day 1 from irrigation and debridement and open reduction and internal fixation of left open distal humerus fracture. 3. End-stage renal disease, on dialysis. 4. History of severe coronary artery disease and valvular disease, pending aortic valve replacement. 5. History of atrial fibrillation, requiring anticoagulation. 6. Human immunodeficiency virus positive. 7. Acute on chronic anemia, stable. 8. Fistula clotted, requiring new fistula placement, scheduled for tomorrow. The patient is currently n.p.o. after midnight. PLAN: Plan will be to continue supportive care. Encourage physical and occupational therapy. As previously stated, n.p.o. after midnight for dialysis fistula placement and discuss placement postoperatively. Job ID: [id number]
[2019-12-17] MEDS: Amiodarone 450 MG in Dextrose 5% in Water 250 ML IVPB SCH ×2 (01:04→09:17)
[2019-12-17 04:17] LABS: Anion Gap 23 mmol/L (10-20); BUN (Urea Nitrogen) 53 mg/dL (8.4-25.7); Calc. Creatinine Clearance 13 mL/min (70-130); Calcium 9.5 mg/dL (7.8-10.44); Carbon Dioxide 20 mmol/L (22-29); Chloride 95 mmol/L (98-107); Estimated GFR-MDRD 5; Glucose 231 mg/dL (70-105); Magnesium 2.2 mg/dL (1.6-2.6); Phosphorus 10.2 mg/dL (2.3-4.7); Potassium 4.6 mmol/L (3.5-5.1); Sodium 133 mmol/L (136-145)
[2019-12-17 04:55] LABS: #Eosinphils 0.1 thou/uL (0.0-0.7); #Lymphocytes 0.5 thou/uL (1.20-3.40); #Monocytes 0.6 thou/uL (0.11-0.59); %Basophils 0.3 % (0.0-1.0); %Eosinophils 0.7 % (0.0-10.0); %Lymphocytes 6.6 % (21.0-51.0); %Monocytes 6.9 % (0.0-10.0); %Neutrophils 85.5 % (42.0-75.0); Mean Corpuscular HGB CONC 32.6 g/dL (32.0-36.0); Mean Corpuscular Hemoglobin 29.8 pg (27.0-31.0); Mean Corpuscular Volume 91.2 fL (78.0-98.0); Mean Platelet Volume 7.4 fL (7.4-10.4); Platelet Count 123 thou/uL (130-400); RBC Distribution Width 17.5 % (11.5-14.5); Red Blood Cell (RBC) Count 2.68 mill/uL (4.70-6.10); White Blood Cell (WBC) Count 8.2 thou/uL (4.8-10.8)
[2019-12-17] MEDS: Hydrocortisone Sod Succ/PF 100 mg/2 ml Vial IVP SCH ×4 (05:34→23:39)
[2019-12-17] MEDS: HYDROcodone/Acetaminophen 7.5/325 mg Tablet PO PRN ×2 (05:35→09:58)
[2019-12-17] MEDS: HumaLOG 300 UNITS/3 ML VIAL SC PRN (05:35)
[2019-12-17] MEDS: Acetaminophen 500 MG TAB PO SCH ×4 (05:35→23:40)
--- NOTE | 2019-12-17 06:05 | CON ---
DATE OF CONSULTATION: 12/15/2019 CONSULTING PHYSICIAN: Whitney Hermosillo MD REQUESTING PHYSICIAN: Trauma PA. REASON FOR CONSULTATION: Hyperkalemia in a patient with end-stage renal disease, the need for maintenance dialysis. IMPRESSION: 1. End-stage renal disease, on hemodialysis schedule, Tuesday, , Tuesday at [facility] in [place], [place]. 2. Hyperkalemia in the context of #1. 3. Hemodynamically unstable. 4. Atrial fibrillation, on anticoagulation. 5. Traumatic fracture of the left upper extremity with open wound. PLAN: 1. The patient to be dialyzed with a low-potassium bath and will also require blood transfusion. We will prefer to do this during dialysis to avoid severe hyperkalemia. 2. For now, medically manage the hyperkalemia pending dialysis of this patient. 3. Gentle ultrafiltration as tolerated by hemodynamics. 4. Further management to be dependent on the clinical course. HISTORY OF PRESENT ILLNESS: History is that of 59-year-old gentleman with end-stage renal disease, hemodialysis dependent, who dialyzes at [facility] in [place], [place], presented here status post fall that resulted in left upper extremity fracture and open wound, noted to be severely hyperkalemic and due for dialysis. The patient is noted to be hemodynamically unstable, necessitating the extensive discussion between myself and the trauma PA, transferring this patient to ICU for stabilization of hemodynamics and eventual hemodialysis with ultrafiltration as tolerated. As a result of the severe hyperkalemia, decision has been taken to involve Renal in the management of this case. PAST MEDICAL HISTORY: Significant for end-stage renal disease, hemodialysis dependent; atrial fibrillation; coagulopathic, on Coumadin; hypertension; valvular disease awaiting valvular surgery; HIV infection. ALLERGIES: TO PENICILLIN AND SULFA. MEDICATIONS: As documented on Inflection. SOCIAL HISTORY: The patient lives alone. No alcohol. No tobacco. Denies illicit drug use. FAMILY HISTORY: Not significantly related to present illness. REVIEW OF SYSTEMS: As documented in the body of the history. All other systems were reviewed and found not to be significantly related to presenting illness. PHYSICAL EXAMINATION: GENERAL: On examination, the patient was found to be in some physical distress, but no severe respiratory distress. VITAL SIGNS: Noted with the following vital signs; afebrile, temperature 98.2, pulse 91, respiratory rate 18, O2 sat 100% on 3 L with a blood pressure diastolic of 54. HEENT: Unremarkable. CARDIOVASCULAR SYSTEM: First and second heart sounds, irregularly irregular. RESPIRATORY SYSTEM: Clear to auscultation. DIGESTIVE SYSTEM: Benign abdomen with positive bowel sounds, EXTREMITIES: No peripheral edema. SKIN: No new gross rash. LYMPHATICS: No peripheral lymphadenopathy. EXTREMITIES: No peripheral edema. IMPRESSION: A 59-year-old gentleman with end-stage renal disease, who presented here status post traumatic fracture of the left upper extremity. Thank you for this consultation. We will follow with you. Job ID: [id number]
[2019-12-17] MEDS: Mometasone 200 MCG/Formoterol 5 MCG 120 PUFF INHALER INH SCH ×2 (07:28→18:37)
[2019-12-17] MEDS: HumaLOG 300 UNITS/3 ML VIAL SC SCH ×3 (09:18→17:37)
[2019-12-17] MEDS: Icosapent Ethyl 1 GM CAPSULE PO SCH ×2 (09:18→17:33)
[2019-12-17] MEDS: Sevelamer Carbonate 800 MG TAB PO SCH ×3 (09:20→17:35)
[2019-12-17] MEDS ORDERED: Lidocaine 1% PF 5 ML VIAL ONE (09:47)
[2019-12-17] MEDS ORDERED: PROPOFOL 200 MG/20 ML VIAL ONE (09:47)
[2019-12-17] MEDS ORDERED: PHENYLEPHRINE-NS 100 MCG/ML 10 ML SYRINGE ONE (09:47)
--- NOTE | 2019-12-17 09:57 | PRG ---
DATE OF SERVICE: 12/17/2019 SUBJECTIVE: Mr. Stanley is a 59-year-old man with history of HIV, end-stage renal disease, on hemodialysis. The patient is post injury day #3, status post ground level fall. He is postoperative day #2, status post ORIF of left distal humerus fracture. He has received a total of 2 units of packed red blood cells and fresh frozen plasma since admission. Blood pressure is more stable now. The patient is awake and alert, reports adequate pain control. OBJECTIVE: VITAL SIGNS: This morning include blood pressure 107/79, pulse is 97 and irregular, respiratory rate is 18, maximum temperature over the last 24 hours is 100.4 degrees Fahrenheit, current temperature is 97.7 degrees Fahrenheit, oxygen saturation is 97% on room air. HEART: Reveals irregular rate and irregular rhythm. LUNGS: Clear to auscultation bilaterally. Breathing, regular and nonlabored. ABDOMEN: Soft, nontender, and nondistended. EXTREMITIES: Reveals 2+ radial and pedal pulses bilaterally. NEUROLOGIC: Reveals no focal deficits present. LABORATORY FINDINGS: Today includes a CBC with 8,200 white blood cells; hemoglobin and hematocrit stable at 8.0 and 24.4 respectively. The platelet count is 123,000. Metabolic profile; sodium 133, potassium 4.6, chloride is 95, bicarb is 20, BUN is 53, creatinine is 11.1, and glucose is 231. IMPRESSIONS: 1. Postoperative day #2, status post ORIF of distal left humerus fracture. 2. Acute blood loss anemia, stable. 3. Stable chronic kidney disease, dialysis dependent. PLAN: The patient returned to the operating room today for AV fistula formation per Dr. Love. He is certainly hemodynamically stable and will be transferred to general surgical floor postoperatively if he remains stable. The above findings and plan discussed with the patient who indicates understanding of information given. I have answered his questions. Job ID: [id number]
--- NOTE | 2019-12-17 10:11 | PRG ---
DATE OF SERVICE: 12/17/2019 SUBJECTIVE: A 59-year-old gentleman is being seen for end-stage renal disease. OBJECTIVE: GENERAL: The patient is resting well. VITAL SIGNS: Afebrile, pulse 122, breathing at 16, blood pressure 107/79. HEENT: Head normocephalic and atraumatic. Eyes intact, no ulcers. Nose intact, no ulcers. Ears intact, no ulcers. NECK: Supple. No JVD. CHEST: Symmetrical and clear. CARDIOVASCULAR: Shows S1 and S2, no rub, no murmur. GASTROINTESTINAL: Abdomen is soft, bowel sounds positive. EXTREMITIES: Show no edema or ulcers. SKIN: Shows no rash or petechiae. MUSCULOSKELETAL: Shows no joint swelling or stiffness. GENITOURINARY: Shows no Nicholson or CVA tenderness. NEUROLOGIC: The patient is resting. LABORATORY DATA: Hemoglobin 8. Potassium 4.6. ASSESSMENT AND PLAN: 1. Stage 6 chronic kidney disease, plan dialysis. 2. Hyperphosphatemia. We will start binders once the patient starts eating. 3. Anemia, stable. 4. Medication based on GFR appropriate. Job ID: [id number]
[2019-12-17] MEDS: Gabapentin 300 MG CAP PO SCH (11:20)
[2019-12-17] MEDS: Heparin 5,000 UNITS/ML VIAL SC SCH ×2 (11:20→21:00)
[2019-12-17] MEDS: FLUoxetine HCl 20 MG CAP PO SCH (11:20)
[2019-12-17] MEDS: Folic Acid/Vit B Comp W-C PO SCH (11:20)
[2019-12-17] MEDS: Furosemide 80 MG TAB PO SCH ×2 (11:20→21:00)
[2019-12-17] MEDS ORDERED: Bupivacaine PF 0.5% 30 ML VIAL ONE (12:04)
[2019-12-17] MEDS ORDERED: Heparin 10,000 UNITS/1 ML VIAL ONE (12:04)
[2019-12-17] MEDS ORDERED: Heparin 5,000 UNITS/ML VIAL ONE (12:04)
[2019-12-17] MEDS ORDERED: Lidocaine 1% w/Epinephrine 1:100K 20 ML VIAL ONE (12:04)
[2019-12-17] MEDS ORDERED: Protamine Sulfate 50 MG/5 ML VIAL ONE (12:04)
[2019-12-17] MEDS ORDERED: Sodium Chloride 0.9% 20 ML ONE (12:04)
[2019-12-17] MEDS: Insulin Glargine 65 UNITS in Pre-Filled Syringe SC SCH ×2 (12:34→21:00)
[2019-12-17] MEDS ORDERED: Fentanyl 100 MCG/2 ML VIAL ONE (13:08)
[2019-12-17] MEDS ORDERED: Levofloxacin 500 mg/D5W 100 ml Premix Bag ONE (13:29)
[2019-12-17] MEDS ORDERED: Promethazine HCl 25 MG/ML VIAL IM PRN (16:00)
[2019-12-17] MEDS ORDERED: Ondansetron HCl/PF 4 MG/2 ML Vial IVP PRN (16:00)
[2019-12-17] MEDS ORDERED: Promethazine HCl 25 MG/ML VIAL SLOW IVP PRN (16:00)
--- NOTE | 2019-12-17 16:45 | RAD ---
CHEST 1 VIEW: Date: 12/17/2019 COMPARISON: 12/14/2019. HISTORY: Chest pain. FINDINGS: Right-sided HemoSplit dialysis catheter terminates in the region of the right atrium. No pneumothorax . Heart is enlarged. Pulmonary vessels are slightly prominent. Patchy interstitial opacities without consolidation or mass. IMPRESSION: 1. Cardiomegaly. Pulmonary vascular prominence. Correlate for volume overload. 2. Right-sided HemoSplit dialysis catheter placement is suspected. No pneumothorax. POS: PPP
[2019-12-17] MEDS: Darunavir/Cobicistat [Prezcobix 800 Mg-150 Mg Tablet] PO SCH (17:33)
--- NOTE | 2019-12-17 19:32 | OP ---
DATE OF PROCEDURE: 12/17/2019 PREOPERATIVE DIAGNOSES: 1. End-stage renal disease, dialysis, fistula, thrombosis, malfunction, left arm. 2. Traumatic fracture, left humerus, open, status post open reduction internal fixation. 3. Human immunodeficiency virus positive. 4. Severe aortic stenosis, scheduled for transcatheter aortic valve replacement next week. 5. Obesity. PROCEDURES: Right arm Asuncion fistula, cephalic vein calibrated to a 3.5 coronary dilator. Branches ligated and clipped. Placement of right IJ cuffed tunneled hemodialysis catheter. Ultrasound, fluoroscopy used. ANESTHESIA: Regional TIVA. DESCRIPTION OF PROCEDURE: Patient was taken to the operating room, where under IV sedation and regional anesthesia, right arm, neck, chest, and right upper extremity prepared with ChloraPrep and draped in routine fashion. Ultrasound used to cannulate the right internal jugular vein, threading the J-wire. The surgical area anesthetized with local anesthetic mixture of 0.5% Marcaine 30 mL mixed with 1% Xylocaine with epinephrine 20 mL. Stab incision made at the J-wire entrance site. Stab incision was made over the right chest. Tunneling device used to tunnel the hemodialysis catheter between the 2 incisions, placed the fabric cuff beneath the skin exit site. Catheter secured with 2 interrupted suture of 3-0 nylon. Small and medium size dilators placed over the J-wire and the internal jugular vein removed. Dilator and Peel-Away sheath placed with J-wire in superior vena cava. Dilator and J-wire were removed. Catheter placed with the Peel-Away sheath. Peel-Away sheath removed. Platysma was approximated with 4-0 Monocryl, skin with subdermal 4-0 Monocryl and [place] glue applied. Each port aspirated with blood, flushed with saline solution and heparinized saline solution 1000 units of heparin per mL, indicating volume of the ports. Final fluoroscopic images revealed good line placement. Incision was made in the right wrist longitudinally, carried through skin and subcutaneous tissue. Radial artery cephalic vein dissected free. Cephalic vein on the hand side ligated with 3-0 silk tie. It was spatulated, interrogated with coronary dilators, passing coronary dilators throughout the length with a 2 mm, 2.5, 3, and 3.5 mm coronary dilators. It was flushed with heparinized saline solution. Patient was given 6000 units of heparin intravenously. Radial artery dissected free, was arteriosclerotic calcified, but had a good flow. segment dissected free and clamped proximally and distally longitudinal arteriotomy was made sharply, elongated with Henson scissors and cephalic vein accordingly spatulated and continuous suture of 6-0 Prolene used for the anastomosis. Hemostasis gained with 6-0 Prolene. Vascular clamps were released. Good flow noted by Doppler. There was a bifid system and the more lateral branch ligated with a 3-0 silk tie, divided between clips. There was a branch more proximally. Anesthesia was made. This was dissected free, interrogated with Doppler and appropriately ligated with 3-0 silk ties. Good Doppler signal noted in the forearm fistula. Subcutaneous tissue was approximated with 3-0 Monocryl, skin with subdermal 4-0 Monocryl and [place] glue applied. Job ID: [id number]
[2019-12-17] MEDS: Atorvastatin Calcium 40 MG TAB PO SCH (21:00)
[2019-12-17] MEDS: Montelukast Sodium 10 mg Tablet PO SCH (21:01)
[2019-12-17] MEDS: DOLUTEGRAVIR SODIUM 50 MG PO SCH (21:01)
[2019-12-18] MEDS: Amiodarone 450 MG in Dextrose 5% in Water 250 ML IVPB SCH (01:40)
--- NOTE | 2019-12-18 02:20 | PRG ---
DATE OF SERVICE: 12/18/2019 SUBJECTIVE: The patient is currently on the telemetry floor. He was moved from the critical care unit today, went to the operating room for AV fistula formation and then returned to telemetry due to his atrial fibrillation with rapid ventricular response. His blood pressure has been stable today, but his heart rate has at times been well above 100 requiring his amiodarone to be turned back on. He otherwise is doing well and will likely undergo dialysis again tomorrow per his regular schedule. He is tolerating a diet and his pain is controlled and his bowel function has returned. PHYSICAL EXAMINATION: VITAL SIGNS: Stable. The patient is afebrile. Heart rate at the time of my visit was fluctuating between 90 and 105. GENERAL: The patient is resting comfortably in bed. He was asleep when I entered the room. He did wake up briefly to general voice stimuli and stated he had no complaints at this time. His respirations are nonlabored. LUNGS: Clear to auscultation bilaterally. HEART: Irregularly irregular consistent with his atrial fibrillation. ABDOMEN: Soft with active bowel sounds. EXTREMITIES: Neurovascularly intact x4. Postop dressing are clean, dry, and intact. His left upper extremity splint is clean, dry, and intact. ASSESSMENT/PLAN: 1. Status post ground level fall, hospital day #4. 2. Postop day #2 status post open reduction and internal fixation of left distal humerus fracture. 3. Acute blood loss anemia, stable. 4. Chronic kidney disease, dialysis-dependent. 5. Atrial fibrillation with rapid ventricular response, currently on amiodarone drip. 6. Status post AV fistula formation today. PLAN: Will be to continue supportive care. Begin physical and occupational therapy. Dialysis per Nephrology. Hopefully wean from IV amiodarone and begin p.o. Job ID: [id number]
[2019-12-18] MEDS: Hydrocortisone Sod Succ/PF 100 mg/2 ml Vial IVP SCH ×3 (05:17→17:30)
[2019-12-18] MEDS: Acetaminophen 500 MG TAB PO SCH ×3 (05:17→17:30)
[2019-12-18 05:34] LABS: #Basophils 0.1 thou/uL (0.0-0.2); #Eosinphils 0.3 thou/uL (0.0-0.7); #Lymphocytes 1.2 thou/uL (1.20-3.40); #Monocytes 0.9 thou/uL (0.11-0.59); %Basophils 0.5 % (0.0-1.0); %Eosinophils 3.3 % (0.0-10.0); %Lymphocytes 11.5 % (21.0-51.0); %Monocytes 8.8 % (0.0-10.0); %Neutrophils 75.9 % (42.0-75.0); Mean Corpuscular Hemoglobin 29.7 pg (27.0-31.0); Mean Corpuscular Volume 92.9 fL (78.0-98.0); Mean Platelet Volume 7.4 fL (7.4-10.4); Platelet Count 144 thou/uL (130-400); RBC Distribution Width 17.4 % (11.5-14.5); Red Blood Cell (RBC) Count 2.68 mill/uL (4.70-6.10); White Blood Cell (WBC) Count 10.5 thou/uL (4.8-10.8)
[2019-12-18 05:54] LABS: Magnesium 2.2 mg/dL (1.6-2.6)
[2019-12-18 06:00] LABS: Phosphorus 11.2 mg/dL (2.3-4.7)
[2019-12-18 07:29] LABS: Anion Gap 27 mmol/L (10-20); BUN (Urea Nitrogen) 69 mg/dL (8.4-25.7); Calc. Creatinine Clearance 11 mL/min (70-130); Calcium 9.1 mg/dL (7.8-10.44); Carbon Dioxide 19 mmol/L (22-29); Chloride 96 mmol/L (98-107); Estimated GFR-MDRD 4; Glucose 92 mg/dL (70-105); Potassium 4.8 mmol/L (3.5-5.1); Sodium 137 mmol/L (136-145)
[2019-12-18] MEDS: Mometasone 200 MCG/Formoterol 5 MCG 120 PUFF INHALER INH SCH ×2 (07:42→18:58)
--- NOTE | 2019-12-18 09:01 | PRG ---
DATE OF SERVICE: 12/18/2019 SUBJECTIVE: Amari is a postop day 3 from a left elbow open reduction and internal fixation. He was transferred from the unit yesterday up to [address] [place] [address] and is now receiving respiratory treatment as I evaluate him today. OBJECTIVE: VITAL SIGNS: temperature 100 at the bedside, pulse is 112, respiratory rate is 20, blood pressure is 106/57. GENERAL: He is alert, responsive, appropriate, but he is complaining of pain. EXTREMITIES: Left arm is in a splint, has been rewrapped. LABORATORY DATA: Hemoglobin 8.0, hematocrit 24.9, and white blood cell count 10.5. IMPRESSION: Postoperative day 3, left elbow open reduction and internal fixation. PLAN: Continue to follow from a distance, and we will re-evaluate the patient tomorrow. At this point, no further orthopedic intervention is recommended. Job ID: [id number]
[2019-12-18] MEDS: HumaLOG 300 UNITS/3 ML VIAL SC SCH ×3 (09:40→17:28)
[2019-12-18] MEDS: Sevelamer Carbonate 800 MG TAB PO SCH ×3 (09:41→17:29)
[2019-12-18] MEDS: Acetaminophen/Codeine 30-300mg Tablet PO PRN (09:46)
[2019-12-18] MEDS: Insulin Glargine 65 UNITS in Pre-Filled Syringe SC SCH (11:08)
--- NOTE | 2019-12-18 12:58 | PRG ---
DATE OF SERVICE: 12/18/2019 SUBJECTIVE: This is a 59-year-old gentleman, being seen for end-stage kidney disease. The patient denies any nausea, vomiting, or chest pain. PHYSICAL EXAMINATION: GENERAL: The patient is awake and alert. VITAL SIGNS: Afebrile, pulse 75, breathing 16, blood pressure was 116/44. HEENT: Head normocephalic and atraumatic. Eyes intact, no ulcers. Nose intact, no ulcers. Ears intact, no ulcers. Neck: Supple. No JVD. Chest: Symmetrical and clear. Cardiovascular: Shows S1 and S2, no rub, no murmur. Gastrointestinal: Abdomen is soft, bowel sounds positive. Extremities: Show no edema or ulcers. Skin: Shows no rash or petechiae. Musculoskeletal: Shows no joint swelling or stiffness. Genitourinary: Shows no Nicholson or CVA tenderness. Neurologic: Motor intact. Cranial nerves intact. LABORATORY DATA: Reviewed. ASSESSMENT AND PLAN: 1. Stage 6 chronic kidney disease, continue hemodialysis. 2. Hypertension, stable. 3. Anemia, stable. 4. Medication based on GFR, appropriate. Job ID: [id number]
[2019-12-18] MEDS: Icosapent Ethyl 1 GM CAPSULE PO SCH ×2 (14:10→17:31)
[2019-12-18] MEDS: Heparin 5,000 UNITS/ML VIAL SC SCH ×2 (14:12→21:27)
--- NOTE | 2019-12-18 14:22 | PRG ---
DATE OF SERVICE: 12/18/2019 SUBJECTIVE: Mr. Stanley is a 59-year-old man with a history of HIV and end-stage renal disease, on hemodialysis. The patient is postoperative day #1 status post right arm hemodialysis fistula formation and left IJ tunnel hemodialysis catheter. He is also postoperative day #3 status post ORIF of left distal humerus fracture. The patient is awake and alert. He has been in atrial fibrillation with rapid ventricular response overnight. This morning, he reports adequate pain control. He is on amiodarone by continuous infusion. OBJECTIVE: VITAL SIGNS: This morning include blood pressure of 116/44, pulse 106 and irregular, respiratory rate is 12, maximum temperature in last 24 hours is 100.8 degrees Fahrenheit, and oxygen saturation is 99% on 2 L by nasal cannula oxygen. HEART: Irregular rate and irregular rhythm. LUNGS: Clear to auscultation bilaterally. Breathing, regular and nonlabored. He has a poor cough effort. He only achieves 500 mL using incentive spirometer. ABDOMEN: Soft, nontender, and nondistended. NEUROLOGIC: No focal deficits present. LABORATORY FINDINGS: Today include a CBC with 10,500 white blood cells, hemoglobin and hematocrit of 8.0 and 24.9 respectively. Platelet count is 144,000. Metabolic profile; sodium is 137, potassium is 4.8, chloride is 96, bicarb is 19, BUN is 69, creatinine is 12.55, glucose is 110, and magnesium is 2.2. IMPRESSION: 1. Postoperative day #1 status post right arm hemodialysis fistula formation. 2. Chronic renal failure, dialysis dependent. 3. Acute atrial fibrillation with rapid ventricular response, likely secondary to relative hypervolemia. 4. Stable chronic anemia. PLAN: 1. Continue with amiodarone infusion for rate control. 2. The patient undergoes planned hemodialysis today and anticipate volume will be removed. 3. Increase activity per Physical and Occupational Therapy. 4. Encourage better pulmonary toilet. 5. I suspect the patient's fever is secondary to pulmonary atelectasis, which were resolved with increased activity, pulmonary toilet and bronchodilator therapy. Above findings and plan discussed with the patient, who indicates understanding information given. I have answered his questions. Job ID: [id number]
[2019-12-18] MEDS: Furosemide 80 MG TAB PO SCH ×2 (15:40→21:27)
[2019-12-18] MEDS: FLUoxetine HCl 20 MG CAP PO SCH (15:42)
[2019-12-18] MEDS: Gabapentin 300 MG CAP PO SCH (15:42)
[2019-12-18] MEDS: Folic Acid/Vit B Comp W-C PO SCH (15:42)
--- NOTE | 2019-12-18 17:00 | PRG ---
DATE OF SERVICE: 12/18/2019 Amari Stanley is doing well today. His hemodialysis catheter is working well. He has good thrill in his Asuncion fistula wrist. This was calibrated well, but he did have arteriosclerotic disease. He should follow up in my office. He should exercise his right arm without restrictions. He should follow up in my office in 3 to 4 weeks. If this Asuncion wrist fistula does not mature, then he has veins more proximally that could be used. At this point, I will see him as needed in this hospitalization. Please call if necessary. Job ID: [id number]
[2019-12-18] MEDS: Warfarin Sodium 5 MG TAB PO SCH (17:30)
[2019-12-18] MEDS: Darunavir/Cobicistat [Prezcobix 800 Mg-150 Mg Tablet] PO SCH (17:31)
[2019-12-18] MEDS: Ondansetron ODT 4 MG TAB PO PRN (17:49)
[2019-12-18] MEDS: Amiodarone 200 MG TAB PO SCH (21:26)
[2019-12-18] MEDS: Montelukast Sodium 10 mg Tablet PO SCH (21:27)
[2019-12-18] MEDS: Atorvastatin Calcium 40 MG TAB PO SCH (21:27)
[2019-12-18] MEDS: DOLUTEGRAVIR SODIUM 50 MG PO SCH (21:28)
--- NOTE | 2019-12-18 22:59 | PRG ---
DATE OF SERVICE: 12/18/2019 SUBJECTIVE: The patient remains on the telemetry floor, awake, alert, in no distress. The patient is postop day #1, status post right arm hemodialysis fistula formation and postop day #3, status post open reduction and internal fixation of a left distal humerus fracture. The patient does report some nausea and vomited earlier this evening. The patient states that this started after they got him up in the chair earlier today. The patient has a decreased appetite at this time. The patient's pain is well controlled. The patient remains in atrial fibrillation with controlled rate on the keymodule assembly machine tender. No ectopy noted. The patient was changed to p.o. amiodarone today. The patient's highest heart rate has been 115 today. OBJECTIVE: VITAL SIGNS: Blood pressure 104/59, pulse 98, temperature 98.6, respirations 16, SpO2 of 95% on 2 L nasal cannula. RESPIRATORY: Breathing is regular and nonlabored. No respiratory distress. HEART: Irregularly irregular rate. EXTREMITIES: Moves all extremities. Left upper extremity with splint clean, dry, and intact. IMPRESSION: 1. Postop day #1, status post right arm hemodialysis fistula formation. 2. End-stage renal disease, dialysis-dependent. 3. Acute atrial fibrillation, rate controlled. 4. Stable chronic anemia. PLAN: Continue amiodarone p.o. for rate control. Continue pain regimen. Encourage use of incentive spirometer and pulmonary toilet. Increase activity per Physical and Occupational Therapy. Job ID: [id number]
[2019-12-19] MEDS: Hydrocortisone Sod Succ/PF 100 mg/2 ml Vial IVP SCH ×4 (00:02→17:05)
[2019-12-19] MEDS: Acetaminophen 500 MG TAB PO SCH ×5 (00:05→22:33)
[2019-12-19] MEDS: Ondansetron ODT 4 MG TAB PO PRN ×2 (00:05→09:45)
[2019-12-19] MEDS: Insulin Glargine 65 UNITS in Pre-Filled Syringe SC SCH ×3 (00:23→19:55)
[2019-12-19 04:46] LABS: INR-International Normal Ratio 2.2; Prothrombin Time 24.6 sec (12.0-14.7)
[2019-12-19 05:00] LABS: Band 6 % (5-11); Eosinophils 1 % (0-10); Hemoglobin 7.7 g/dL (14.0-18.0); Hypochromia SLIGHT = 6-15 cells (100X) (0-5/hpf); Lymphocytes 5 % (21-51); MDiff Complete? YES; Mean Corpuscular HGB CONC 31.7 g/dL (32.0-36.0); Mean Corpuscular Hemoglobin 29.6 pg (27.0-31.0); Mean Corpuscular Volume 93.4 fL (78.0-98.0); Mean Platelet Volume 7.9 fL (7.4-10.4); Monocytes 3 % (0-10); Neutrophil 85 % (42-75); Nucleated RBC 1 % (0); Platelet Count 135 thou/uL (130-400); Platelet Morphology Comment Appears Adequate; RBC Distribution Width 16.9 % (11.5-14.5); Red Blood Cell (RBC) Count 2.62 mill/uL (4.70-6.10); White Blood Cell (WBC) Count 8.5 thou/uL (4.8-10.8)
[2019-12-19 05:05] LABS: Anion Gap 27 mmol/L (10-20); BUN (Urea Nitrogen) 48 mg/dL (8.4-25.7); Calc. Creatinine Clearance 18 mL/min (70-130); Calcium 9.3 mg/dL (7.8-10.44); Carbon Dioxide 21 mmol/L (22-29); Chloride 92 mmol/L (98-107); Estimated GFR-MDRD 7; Glucose 159 mg/dL (70-105); Magnesium 2.3 mg/dL (1.6-2.6); Potassium 4.6 mmol/L (3.5-5.1); Sodium 135 mmol/L (136-145)
[2019-12-19 05:20] LABS: Phosphorus 9.7 mg/dL (2.3-4.7)
[2019-12-19] MEDS: Mometasone 200 MCG/Formoterol 5 MCG 120 PUFF INHALER INH SCH ×2 (07:21→18:35)
--- NOTE | 2019-12-19 09:27 | EKG ---
Test Reason : Blood Pressure : / mmHG Vent. Rate : 094 BPM Atrial Rate : 031 BPM P-R Int : 000 ms QRS Dur : 164 ms QT Int : 452 ms P-R-T Axes : 000 -07 102 degrees QTc Int : 565 ms Wide QRS rhythm Left bundle branch block Abnormal ECG When compared with ECG of 10-SEP-2016 13:07, Wide QRS rhythm has replaced Sinus rhythm Vent. rate has increased BY [address] Keanu COTO ([id number]) on 12/19/2019 9:27:17 AM Referred By: KAYLI Confirmed By:DR. Keanu COTO
[2019-12-19] MEDS: Amiodarone 200 MG TAB PO SCH ×2 (09:35→19:53)
[2019-12-19] MEDS: Heparin 5,000 UNITS/ML VIAL SC SCH (09:36)
[2019-12-19] MEDS: Icosapent Ethyl 1 GM CAPSULE PO SCH ×2 (09:37→17:57)
[2019-12-19] MEDS: Sevelamer Carbonate 800 MG TAB PO SCH ×3 (09:38→17:04)
[2019-12-19] MEDS: HumaLOG 300 UNITS/3 ML VIAL SC SCH ×3 (09:38→17:05)
[2019-12-19] MEDS: Furosemide 80 MG TAB PO SCH ×2 (09:40→19:54)
[2019-12-19] MEDS: Gabapentin 300 MG CAP PO SCH (09:40)
[2019-12-19] MEDS: Folic Acid/Vit B Comp W-C PO SCH (09:40)
[2019-12-19] MEDS: FLUoxetine HCl 20 MG CAP PO SCH (09:40)
[2019-12-19] MEDS: Metoprolol Tartrate 25 MG TAB PO SCH ×2 (09:41→19:53)
[2019-12-19] MEDS ORDERED: Promethazine HCl 12.5 MG in Sodium Chloride 0.9% 50 ML IVPB PRN (11:09)
--- NOTE | 2019-12-19 11:38 | PRG ---
DATE OF SERVICE: 12/19/2019 SUBJECTIVE: A 59-year-old gentleman is being seen for end-stage renal disease. The patient denies any chest pain or dyspnea. OBJECTIVE: GENERAL: The patient is awake and alert. VITAL SIGNS: Afebrile, pulse 75, breathing at 16, and blood pressure 112/54. HEENT: Head normocephalic and atraumatic. Eyes intact, no ulcers. Nose intact, no ulcers. Ears intact, no ulcers. NECK: Supple. No JVD. CHEST: Symmetrical and clear. CARDIOVASCULAR: Shows S1 and S2, no rub, no murmur. GASTROINTESTINAL: Abdomen is soft, bowel sounds positive. EXTREMITIES: Show no edema or ulcers. SKIN: Shows no rash or petechiae. MUSCULOSKELETAL: Shows no joint swelling or stiffness. GENITOURINARY: Shows no Nicholson or CVA tenderness. NEUROLOGIC: Motor intact. Cranial nerves intact. LABORATORY DATA: Reviewed. ASSESSMENT AND PLAN: 1. Stage 6 chronic kidney disease. Plan dialysis tomorrow. 2. Hypertension, stable. 3. Anemia. Recommend transfusion. 4. Medication based on GFR appropriate. Job ID: [id number]
--- NOTE | 2019-12-19 12:43 | PRG ---
DATE OF SERVICE: 12/19/2019 SUBJECTIVE: Amari is a 59-year-old male. We are following for an open reduction and internal fixation of the left olecranon. Currently, he has had some nausea and vomiting, and Trauma Team is evaluating and following the patient for this. As far as his left upper extremity is concerned, his pain is improving slowly. He has had no problems with his splint. OBJECTIVE: He is neurovascularly intact. He has good digital excursion and sensation in the dorsal hand. He has appropriate swelling. Splint appears to be intact. No strikethrough. IMPRESSION: Postoperative day 4, left elbow olecranon open reduction and internal fixation. PLAN: Continue current care, re-evaluate. Continue to follow tomorrow. Job ID: [id number]
--- NOTE | 2019-12-19 12:51 | PRG ---
DATE OF SERVICE: 12/19/2019 SUBJECTIVE: The patient was seen this morning lying in bed. He reported having nausea and vomiting throughout the evening and requested to sit up. Otherwise, he has been hemodynamically stable. He is better rate controlled on his current amiodarone oral dosing. OBJECTIVE: VITAL SIGNS: Temperature 98.0, pulse 109, respirations 20, oxygen saturation 95% on room air, and blood pressure 135/60. GENERAL: Middle-aged male, sitting up in bed, with no signs of acute distress. PULMONARY: Equal chest rise and fall. No signs of acute respiratory distress. CARDIAC: Regular rate and rhythm. GASTROINTESTINAL: Abdomen soft, nontender, and nondistended. EXTREMITIES: 2+ pulses in all extremities. Gross motor sensation is intact. No significant swelling noted. NEURO: GCS is 15. LABORATORY FINDINGS: White count 8.5, hemoglobin 7.7, hematocrit 24.4, and platelets 135. Sodium 135, potassium , bicarb 21, BUN 48, creatinine 7.82, glucose 159, phosphorus 9.7, and magnesium 2.3. DIAGNOSTIC FINDINGS: There are no new diagnostic findings to report. ASSESSMENT: 1. Status post mechanical fall from standing on Coumadin. 2. Left open distal humerus fracture, status post repair. 3. Left upper extremity atriovenous fistula failure, status post replacement on the right upper extremity. 4. Atrial fibrillation, rapid ventricular response, now rate controlled. 5. Nausea and vomiting. 6. History of diabetes and end-stage renal disease, on dialysis. 7. Gastroesophageal reflux disease. 8. Aortic valve disease. 9. Human immunodeficiency virus. 10. Stable chronic anemia. 11. Hyperphosphatemia. PLAN: Continue current p.o. amiodarone. Add the patient's home metoprolol today. Continue physical and occupational therapy. We will add IV medication for nausea and vomiting today. We will also move him to the surgical nursing floor on [place]-[facility] and increase physical and occupational therapy. The patient to be up out of bed for as much as possible. Continue Renvela for hyperphosphatemia. The patient is pending placement at a rehab facility versus discharge home with home health. This patient was seen and evaluated by Dr. Min and myself this morning during rounds. Job ID: [id number]
--- NOTE | 2019-12-19 13:03 | PRG ---
DATE OF SERVICE: 12/19/2019 Mr. Stanley is doing well today. He is undergoing dialysis as I am seeing him. On 12/17/2019, he had placement of a fistula and dialysis catheter. This fistula has a good thrill and bruit. At this point, he should exercise his arm and see me as an outpatient. I will see him as needed in this hospitalization. Please call if necessary. Job ID: [id number]
[2019-12-19] MEDS: Ondansetron PF 4 MG/2 ML Vial IVP PRN ×2 (13:36→22:34)
[2019-12-19] MEDS: Darunavir/Cobicistat [Prezcobix 800 Mg-150 Mg Tablet] PO SCH (17:04)
[2019-12-19] MEDS: Warfarin Sodium 5 MG TAB PO SCH (17:04)
[2019-12-19] MEDS: Montelukast Sodium 10 mg Tablet PO SCH (19:53)
[2019-12-19] MEDS: Atorvastatin Calcium 40 MG TAB PO SCH (19:53)
[2019-12-19] MEDS: DOLUTEGRAVIR SODIUM 50 MG PO SCH (19:57)
--- NOTE | 2019-12-19 22:46 | PRG ---
DATE OF SERVICE: 12/19/2019 SUBJECTIVE: The patient was seen during evening rounds on the surgical floor. The patient was awake, alert, sitting up on the side of the bed, complaining of some mild nausea and heartburn. The patient also currently has hiccups at this time. The patient states that he ate peach cobbler earlier and has been nauseated after eating. The patient denies any pain to his left upper extremity. The patient has been hemodynamically stable and heart rate has been controlled on oral amiodarone. OBJECTIVE: VITAL SIGNS: Blood pressure 136/68, pulse 90, temperature 97.1, respirations 18, SpO2 of 100% on room air. GENERAL: Middle-aged male, sitting up on the side of the bed, in no acute distress. PULMONARY: Equal chest rise and fall, respirations are even and nonlabored. EXTREMITIES: Moves all extremities. No focal deficits. Left upper extremity is splinted. Zachary wrap is clean, dry, and intact. Right foot with bandage clean, dry, and intact. NEUROLOGIC: No focal deficits. ASSESSMENT: 1. Status post mechanical fall from standing, on Coumadin. 2. Left open distal humerus fracture, status post repair. 3. Left upper extremity arteriovenous fistula failure, status post replacement on the right upper extremity. 4. Atrial fibrillation, rate controlled. 5. Nausea and vomiting. 6. History of diabetes and end-stage renal disease, on dialysis. 7. Gastroesophageal reflux disease. 8. Aortic valve disease. 9. Human immunodeficiency virus. 10. Chronic anemia, stable. 11. Hyperphosphatemia. PLAN: Continue current pain regimen and p.o. amiodarone. Continue physical and occupational therapy. We will taper patient's hydrocortisone to b.i.d. as his blood pressure is improving. The plan was discussed with the patient who agrees. Job ID: [id number]
[2019-12-20 04:53] VITALS: BMI 38.4
[2019-12-20] MEDS: Acetaminophen 500 MG TAB PO SCH ×4 (04:54→22:59)
[2019-12-20 05:23] LABS: INR-International Normal Ratio 3.5
[2019-12-20 05:27] LABS: Band 16 % (5-11); Eosinophils 1 % (0-10); Hemoglobin 8.1 g/dL (14.0-18.0); Lymphocytes 2 % (21-51); MDiff Complete? YES; Mean Corpuscular HGB CONC 31.7 g/dL (32.0-36.0); Mean Corpuscular Hemoglobin 29.4 pg (27.0-31.0); Mean Corpuscular Volume 92.8 fL (78.0-98.0); Monocytes 7 % (0-10); Neutrophil 74 % (42-75); Platelet Count 167 thou/uL (130-400); Platelet Morphology Comment Appears Adequate; RBC Distribution Width 17.1 % (11.5-14.5); Red Blood Cell (RBC) Count 2.75 mill/uL (4.70-6.10); White Blood Cell (WBC) Count 11.1 thou/uL (4.8-10.8)
[2019-12-20 05:39] LABS: Anion Gap 28 mmol/L (10-20); BUN (Urea Nitrogen) 80 mg/dL (8.4-25.7); Calc. Creatinine Clearance 15 mL/min (70-130); Calcium 8.8 mg/dL (7.8-10.44); Carbon Dioxide 21 mmol/L (22-29); Chloride 88 mmol/L (98-107); Estimated GFR-MDRD 6; Glucose 122 mg/dL (70-105); Magnesium 2.5 mg/dL (1.6-2.6); Potassium 4.2 mmol/L (3.5-5.1); Sodium 133 mmol/L (136-145)
[2019-12-20 05:42] LABS: Phosphorus 10.3 mg/dL (2.3-4.7)
[2019-12-20] MEDS: Mometasone 200 MCG/Formoterol 5 MCG 120 PUFF INHALER INH SCH ×2 (06:50→18:45)
--- NOTE | 2019-12-20 07:45 | PRG ---
DATE OF SERVICE: 12/20/2019 SUBJECTIVE: This is a 59-year-old gentleman being seen for end-stage kidney disease. The patient denies any nausea, vomiting, or chest pain. OBJECTIVE: General: The patient is awake and alert. Vital Signs: Afebrile, pulse 103, breathing at 16, blood pressure 132/68. HEENT: Head normocephalic and atraumatic. Eyes intact, no ulcers. Nose intact, no ulcers. Ears intact, no ulcers. Neck: Supple. No JVD. Chest: Symmetrical and clear. Cardiovascular: Shows S1 and S2, no rub, no murmur. Gastrointestinal: Abdomen is soft, bowel sounds positive. Extremities: Show no edema or ulcers. Skin: Shows no rash or petechiae. Musculoskeletal: Shows no joint swelling or stiffness. Genitourinary: Shows no Nicholson or CVA tenderness. Neurologic: Motor intact. Cranial nerves intact. LABORATORY DATA: Labs reviewed. ASSESSMENT AND PLAN: Stage 6 chronic kidney disease, planned dialysis schedule. Hypertension, stable. Anemia, stable. We will recommend transfusion of 1 unit with dialysis. Job ID: [id number]
[2019-12-20] MEDS ORDERED: Hydrocortisone Sod Succ/PF 100 mg/2 ml Vial IVP SCH (09:00)
[2019-12-20] MEDS: HumaLOG 300 UNITS/3 ML VIAL SC SCH ×4 (09:26→19:44)
[2019-12-20] MEDS: Pantoprazole 40 MG VIAL IVP SCH (09:38)
[2019-12-20] MEDS: Insulin Glargine 65 UNITS in Pre-Filled Syringe SC SCH ×2 (09:38→21:13)
[2019-12-20] MEDS: Sevelamer Carbonate 800 MG TAB PO SCH ×3 (09:39→18:49)
[2019-12-20] MEDS: Icosapent Ethyl 1 GM CAPSULE PO SCH ×2 (09:39→19:35)
[2019-12-20] MEDS: Folic Acid/Vit B Comp W-C PO SCH (09:39)
[2019-12-20] MEDS: Gabapentin 300 MG CAP PO SCH (09:39)
[2019-12-20] MEDS: Amiodarone 200 MG TAB PO SCH ×2 (09:39→21:12)
[2019-12-20] MEDS: FLUoxetine HCl 20 MG CAP PO SCH (09:39)
[2019-12-20] MEDS: Metoprolol Tartrate 25 MG TAB PO SCH ×3 (09:40→21:13)
[2019-12-20] MEDS: Furosemide 80 MG TAB PO SCH ×2 (09:40→21:13)
[2019-12-20] MEDS: Ondansetron PF 4 MG/2 ML Vial IVP PRN (09:40)
--- NOTE | 2019-12-20 10:55 | PRG ---
DATE OF SERVICE: 12/20/2019 SUBJECTIVE: Mr. Stanley is a 59-year-old man, who is postoperative day #5, status post ORIF of left distal humerus and irrigation and debridement of the open wound. He is postop day #3, status post hemodialysis fistula placement. He is seen today at dialysis. The patient had a transient hypotension associated with nausea. Dialysis was suspended. The patient is awake and alert, and denies any chest pain, syncope, or dyspnea. His nausea is resolved with IV Zofran. OBJECTIVE: VITAL SIGNS: Current vital signs include blood pressure 135/81, pulse is 111 and irregular, respiratory rate is 20, maximum temperature in last 24 hours is 98.5 degrees Fahrenheit, oxygen saturation is 97% on room air. HEART: Reveals irregular rate and rhythm. LUNGS: Clear to auscultation bilaterally. ABDOMEN: Soft, nontender, nondistended. NEUROLOGIC: Reveals no focal deficits present. LABORATORY FINDINGS: Today includes a CBC with 11,100 white blood cells, hemoglobin and hematocrit are 8.1 and 25.5 respectively, platelet count is 167,000. Metabolic profile; sodium 133, potassium 4.2, chloride is 88, bicarb is 21, BUN 80, creatinine is 9.43, glucose 122, magnesium is 2.5, and phosphorus is 10.3. IMPRESSIONS: 1. Postop day #5, status post ORIF of open distal left humerus fracture. 2. Postop day #3, status post hemodialysis fistula placement. 3. Acute vasovagal response with transient hypotension. 4. Chronic renal failure, stable. PLAN: 1. The patient will be continued on his home dose of midodrine prior to dialysis. 2. Continue with physical and occupational therapy as tolerated. Anticipate discharge within the next 24 hours if the patient remains hemodynamically stable. Job ID: [id number]
[2019-12-20 14:49] LABS: Anion Gap 23 mmol/L (10-20); BUN (Urea Nitrogen) 87 mg/dL (8.4-25.7); Calc. Creatinine Clearance 15 mL/min (70-130); Calcium 8.6 mg/dL (7.8-10.44); Carbon Dioxide 24 mmol/L (22-29); Chloride 88 mmol/L (98-107); Estimated GFR-MDRD 6; Glucose 171 mg/dL (70-105); Magnesium 2.5 mg/dL (1.6-2.6); Potassium 4.4 mmol/L (3.5-5.1); Sodium 131 mmol/L (136-145)
[2019-12-20 14:50] LABS: Band 23 % (5-11); Hemoglobin 8.1 g/dL (14.0-18.0); Hypochromia SLIGHT = 6-15 cells (100X) (0-5/hpf); Lymphocytes 8 % (21-51); MDiff Complete? YES; Mean Corpuscular HGB CONC 32.6 g/dL (32.0-36.0); Mean Corpuscular Hemoglobin 29.8 pg (27.0-31.0); Mean Corpuscular Volume 91.5 fL (78.0-98.0); Mean Platelet Volume 7.9 fL (7.4-10.4); Monocytes 4 % (0-10); Neutrophil 65 % (42-75); Platelet Count 156 thou/uL (130-400); Platelet Morphology Comment Appears Adequate; Polychromasia SLIGHT = 2-3 cells (100X) (0-2/hpf); RBC Distribution Width 17.1 % (11.5-14.5); Red Blood Cell (RBC) Count 2.71 mill/uL (4.70-6.10); Tear Drops SLIGHT = 2-5 cells (100X) (0-1/hpf); White Blood Cell (WBC) Count 11.6 thou/uL (4.8-10.8)
[2019-12-20 14:52] LABS: Phosphorus 10.3 mg/dL (2.3-4.7)
[2019-12-20 14:55] LABS: Troponin I 4.037 ng/mL (< 0.028)
--- NOTE | 2019-12-20 15:39 | PDOC.EVN ---
Event Note - Event Note Event Note: Trauma called to bedside to eval patient this PM due to intermittent hypertension. Patient was sleeping and easily arousable. He was oriented when interviewed and reported he did not feel well but could not elaborate further. Reports nausea that has improved, no pain, and heart burn which has improved. Labs were completed this afternoon which demonstrated elevated troponin and BNP. ECG today was unchanged from admission and demonstrated a BBB. Dr. Min was updated. Stat echo was ordered and Dr. Ramirez with cardiology was consulted. Dr. Min did speak to the patient's land acquisition analyst, Dr. Suresh, this afternoon as well. The patients recent cardiology work up and notes where requested from Dr. Suresh's office this afternoon. Nurse reported via phone that patients last echo was completed on 09/2019 and demonstrated an EF of 60-65% with severe aortic stenosis. We will follow up recommendations from cardiology. Joycelyn Kraus PA-C Trauma Surgery
[2019-12-20] MEDS: Darunavir/Cobicistat [Prezcobix 800 Mg-150 Mg Tablet] PO SCH (18:48)
[2019-12-20] MEDS: Warfarin Sodium 5 MG TAB PO SCH (18:49)
[2019-12-20] MEDS: Hydrocortisone Sod Succ/PF 100 mg/2 ml Vial IVP SCH ×2 (18:50→22:58)
[2019-12-20] MEDS ORDERED: Nicotine 14 MG PATCH TOP SCH (20:00)
[2019-12-20 21:09] LABS: Critical Call Chem Troponin I RESULT DECREASING; Troponin I 3.468 ng/mL (< 0.028)
[2019-12-20] MEDS: Montelukast Sodium 10 mg Tablet PO SCH (21:10)
[2019-12-20] MEDS: Atorvastatin Calcium 40 MG TAB PO SCH (21:10)
[2019-12-20] MEDS: DOLUTEGRAVIR SODIUM 50 MG PO SCH (21:15)
[2019-12-20] MEDS: Sodium Chloride 0.9% 1,000 ML IV SCH (21:17)
[2019-12-20] MEDS: Melatonin 3 MG TAB PO SCH (22:11)
--- NOTE | 2019-12-20 22:53 | PRG ---
DATE OF SERVICE: 12/20/2019 SUBJECTIVE: The patient was seen during evening rounds in the intermediate care unit. He is postop day #5, status post open reduction and internal fixation of his left distal humerus fracture and irrigation and debridement of the open wound. The patient is currently resting comfortably in no acute distress. The patient did have some lower blood pressures during the day. The patient's blood pressures are being monitored in his lower extremities due to his injury and new hemodialysis fistula placement in the other arm. The patient became hypotensive and nauseated and dialysis was suspended earlier today. The patient currently arouses easily. He is oriented to person, place, and event. The patient denies any nausea at this time. The patient also denies any dizziness or chest pain. The patient does have a decreased appetite and did not eat any of his dinner. OBJECTIVE: VITAL SIGNS: Blood pressure 94/52, pulse 79, temperature 98.5, respirations 18, and SpO2 of 99% on room air. GENERAL: Ill-appearing middle aged gentleman, lying in hospital bed, in no acute distress. RESPIRATORY: Bilateral breath sounds clear. RESPIRATIONS: Even and nonlabored. CARDIAC: Irregular rate, irregular rhythm. ABDOMEN: Obese, soft, nontender. NEUROLOGIC: Oriented to person, place, and time. No focal deficits. LABORATORY DATA: Repeat troponin trending down, 3.468 from 4.037. WBC 11.6, RBC 2.71, hemoglobin 8.1, hematocrit 24.8, 23 bands. Sodium 131, potassium 4.4, chloride 88, carbon dioxide 24, BUN 87, creatinine 9.66, estimated GFR 56, glucose 114, calcium 8.6, phosphorus 10.3, magnesium 2.5, ammonia 29. BNP 901.6. IMPRESSION: 1. Postop day #5, status post open reduction and internal fixation of open distal left humerus fracture. 2. Postoperative day #3, status post hemodialysis fistula placement. 3. Vasovagal response with transient hypotension. 4. End-stage renal disease, on dialysis. PLAN: 1. Supportive care and pain regimen. Renal diabetic diet as tolerated. Hold the patient's metoprolol due to low blood pressures. Continue the patient's home dose of Midrin prior to dialysis tomorrow morning, staff has been instructed. The patient should receive dose 30 minutes before his dialysis tomorrow. 2. Continue physical and occupational therapy. Job ID: [id number] [facility]
--- NOTE | 2019-12-21 00:25 | CON ---
DATE OF CONSULTATION: HISTORY: Amari Stanley is a 59-year-old white male with end-stage renal disease and severe aortic stenosis. Apparently, he is scheduled to have TAVR with Dr. Suresh next week. He was admitted here on December 13 after he fell and developed a comminuted distal humeral fracture of the left arm. He underwent ORIF of this, but it has remained in the hospital since that time. He has had problems with hypotension. He had another episode early this morning with blood pressure 51/15 during dialysis. He denies any chest discomfort or shortness of breath. PAST MEDICAL HISTORY: Diabetes for 40 years, end-stage renal disease for 7 years, aortic stenosis, hypercholesterolemia, chronic atrial fibrillation, HIV. MEDICATIONS: 1. Atorvastatin 40 at bedtime. 2. Symbicort two puffs b.i.d. 3. Darunavir 800/150 daily. 4. Tivicay daily. 5. Fluoxetine 20 mg daily. 6. Folic acid/vitamin-B and C every other day. 7. Furosemide 80 mg b.i.d. 8. Gabapentin 300 mg daily. 9. Atarax at bedtime p.r.n. 10. Vascepa two capsules b.i.d. 11. Insulin. 12. Metoprolol 12.5 mg b.i.d. 13. Midodrine 1.5 tablets p.r.n. 14. Singulair 10 mg at bedtime. 15. Renvela two tablets t.i.d. 16. Simethicone 80 mg p.r.n. 17. Warfarin 5 mg daily. ALLERGIES: PENICILLIN AND SULFA. PAST SURGICAL HISTORY: AV shunt placement. SOCIAL HISTORY: He does not smoke or drink. REVIEW OF SYSTEMS: Otherwise unremarkable. PHYSICAL EXAMINATION: VITAL SIGNS: Blood pressure 94/63, pulse of 108 and irregularly irregular. HEENT: PERRL. NECK: Supple. CHEST: Clear. CARDIAC: S1 and S2 normal without any S3 or S4. There is a 2-3/6 systolic murmur heard throughout the precordium. ABDOMEN: Obese. Normal bowel sounds. No tenderness. EXTREMITIES: Reveal 1 to 2+ pretibial edema. NEUROLOGICAL: The patient is lethargic. LABORATORY DATA: EKG reveals atrial fibrillation with left bundle-branch block. INR 3.5. Hemoglobin 8.1, hematocrit 24.8, white count 11,600, platelets 156, 000. Sodium 131, potassium 4.4, chloride 88, carbon dioxide 24, BUN 87, creatinine 9.66, phosphorus 10.3. Troponin I is 4.037. BNP 901.6. Ammonia 29. IMPRESSION: 1. Hypotension probably related to severe aortic stenosis. 2. The patient is uncertain of his coronary artery status, but only remembers that he needs a valve through the groin. 3. Wbn-BL-bnpulbrxy myocardial infarction, type 2. 4. Chronic atrial fibrillation, on Coumadin. 5. Left bundle-branch block. 6. End-stage renal disease, on dialysis. 7. Diabetes x40 years. 8. Hypercholesterolemia. 9. Obesity. 10. Status post open reduction and internal fixation of the left arm. 11. HIV. 12. Obesity. PLAN: Mr. Stanley has apparently undergone extensive evaluation. I do not feel any repeat of that evaluation is needed at this time. His Coumadin has been discontinued since his INR is 3.5 and plans are for TAVR next week. Also, I would discontinue the amiodarone since I doubt any attempt will be made to try to return him to sinus rhythm. He is not on this at home. I feel the best option would be to transfer him to [facility], so he can undergo planned TAVR with Dr. Suresh. Job ID: [id number] [facility]
[2019-12-21 02:44] LABS: Critical Call Chem Troponin I RESULT DECREASING; Troponin I 3.294 ng/mL (< 0.028)
[2019-12-21] MEDS ORDERED: Midodrine HCl 5 MG TAB PO SCH (05:00)
[2019-12-21 05:36] LABS: Anion Gap 27 mmol/L (10-20); BUN (Urea Nitrogen) 99 mg/dL (8.4-25.7); Calc. Creatinine Clearance 14 mL/min (70-130); Calcium 8.2 mg/dL (7.8-10.44); Carbon Dioxide 21 mmol/L (22-29); Chloride 87 mmol/L (98-107); Estimated GFR-MDRD 5; Glucose 197 mg/dL (70-105); Magnesium 2.5 mg/dL (1.6-2.6); Potassium 4.7 mmol/L (3.5-5.1); Prothrombin Time 45.5 sec (12.0-14.7); Sodium 130 mmol/L (136-145)
[2019-12-21 05:39] LABS: Phosphorus 10.7 mg/dL (2.3-4.7)
[2019-12-21 05:44] LABS: Hemoglobin 8.1 g/dL (14.0-18.0); Mean Corpuscular HGB CONC 32.3 g/dL (32.0-36.0); Mean Corpuscular Hemoglobin 29.4 pg (27.0-31.0); Mean Corpuscular Volume 91.2 fL (78.0-98.0); Platelet Count 161 thou/uL (130-400); RBC Distribution Width 17.1 % (11.5-14.5); Red Blood Cell (RBC) Count 2.73 mill/uL (4.70-6.10); White Blood Cell (WBC) Count 11.5 thou/uL (4.8-10.8)
[2019-12-21 05:48] LABS: INR-International Normal Ratio 4.9
[2019-12-21] MEDS: Hydrocortisone Sod Succ/PF 100 mg/2 ml Vial IVP SCH ×3 (06:29→17:24)
[2019-12-21] MEDS: HumaLOG 300 UNITS/3 ML VIAL SC PRN (06:31)
[2019-12-21] MEDS: Acetaminophen 500 MG TAB PO SCH ×3 (06:31→17:21)
[2019-12-21 06:49] LABS: Anisocytosis SLIGHT = 6-15 cells (100X) (0-5/hpf); Band 10 % (5-11); Lymphocytes 8 % (21-51); MDiff Complete? YES; Monocytes 1 % (0-10); Neutrophil 81 % (42-75)
[2019-12-21] MEDS: Mometasone 200 MCG/Formoterol 5 MCG 120 PUFF INHALER INH SCH ×2 (07:07→18:46)
[2019-12-21] MEDS: Amiodarone 200 MG TAB PO SCH ×2 (10:15→20:20)
[2019-12-21] MEDS: Furosemide 80 MG TAB PO SCH ×2 (10:15→20:20)
[2019-12-21] MEDS: Folic Acid/Vit B Comp W-C PO SCH (10:15)
[2019-12-21] MEDS: Gabapentin 300 MG CAP PO SCH (10:18)
[2019-12-21] MEDS: Icosapent Ethyl 1 GM CAPSULE PO SCH ×2 (10:19→17:23)
[2019-12-21] MEDS: Ondansetron PF 4 MG/2 ML Vial IVP PRN (10:19)
[2019-12-21] MEDS: FLUoxetine HCl 20 MG CAP PO SCH (10:19)
[2019-12-21] MEDS: Sevelamer Carbonate 800 MG TAB PO SCH ×3 (10:20→17:23)
[2019-12-21] MEDS: HumaLOG 300 UNITS/3 ML VIAL SC SCH ×3 (10:20→17:32)
[2019-12-21] MEDS: Pantoprazole 40 MG VIAL IVP SCH (10:20)
[2019-12-21] MEDS: Insulin Glargine 65 UNITS in Pre-Filled Syringe SC SCH ×2 (10:21→20:24)
[2019-12-21] MEDS: Metoprolol Tartrate 25 MG TAB PO SCH ×2 (10:21→20:29)
--- NOTE | 2019-12-21 10:43 | PRG ---
DATE OF SERVICE: SUBJECTIVE: This is a 59-year-old male being seen for end-stage renal disease. The patient denied nausea, vomiting, or chest pain. PHYSICAL EXAMINATION: GENERAL: The patient is awake and alert. VITAL SIGNS: Afebrile, pulse 71, breathing at 16, blood pressure 144/61. HEENT: Head normocephalic and atraumatic. Eyes intact, no ulcers. Nose intact, no ulcers. Ears intact, no ulcers. NECK: Supple. No JVD. CHEST: Symmetrical and clear. CARDIOVASCULAR: Shows S1 and S2, no rub, no murmur. GASTROINTESTINAL: Abdomen is soft, bowel sounds positive. EXTREMITIES: Show no edema or ulcers. SKIN: Shows no rash or petechiae. MUSCULOSKELETAL: Shows no joint swelling or stiffness. GENITOURINARY: Shows no Nicholson or CVA tenderness. NEUROLOGIC: Motor intact. Cranial nerves intact. LABORATORY DATA: Reviewed. ASSESSMENT AND PLAN: 1. Stage 6 chronic kidney disease, plan dialysis tomorrow. 2. Hypertensive, stable. 3. Anemia, stable. 4. Medication based on GFR appropriate. Job ID: [id number]
[2019-12-21 14:18] VITALS: BP 79/48
[2019-12-21] MEDS ORDERED: Warfarin Sodium 5 MG TAB PO SCH (17:00)
[2019-12-21] MEDS: Acetaminophen/Codeine 30-300mg Tablet PO PRN (17:22)
[2019-12-21] MEDS: Darunavir/Cobicistat [Prezcobix 800 Mg-150 Mg Tablet] PO SCH (17:25)
--- NOTE | 2019-12-21 17:30 | PRG ---
DATE OF SERVICE: 12/21/2019 SUBJECTIVE: The patient was seen this morning during rounds with Dr. Min. He is sitting up in a chair, having breakfast with no signs of acute distress. The patient's intermittent hypotension continues to persist after Dr. Ramirez spoke with Dr. Suresh, who is the patient's sales account representative outside of the hospital. They both agree that it would be appropriate to transfer the patient to [facility] for a TAVR as he is not able to sustain an appropriate blood pressure for hemodialysis. He is pending transfer at this time. OBJECTIVE: VITAL SIGNS: Temperature 97.2, pulse 86, respirations 16, and blood pressure 85/65. GENERAL: Ill-appearing, middle-aged male, sitting up in chair with no signs of acute distress. PULMONARY: Equal chest rise and fall. No signs of acute respiratory distress. CARDIAC: Tachycardic, irregular rhythm. GI: Abdomen is distended, but soft and nontender. EXTREMITIES: 2+ pulses in all extremities. Gross motor and sensation are intact. Splint to left upper extremity is clean, dry, and intact. NEUROLOGIC: GCS is 15. Gross motor and sensation are intact. Pupils equal, round, reactive to light bilaterally. LABORATORY FINDINGS: White count 11.5, hemoglobin 8.1, hematocrit 24.9, and platelets 161. INR 4.9. Sodium 139, potassium 4.7, chloride 87, bicarb 21, BUN 99, creatinine 10.51, glucose 197, phosphorus 10.7, magnesium 2.5. CK 3.29. BNP 821. DIAGNOSTIC FINDINGS: Echo completed today demonstrates overall left ventricular function is moderately depressed. Ejection fraction is visually estimated at 30 % to 35%. The left atrium is moderately dilated. Moderate mitral regurg is present. Moderate aortic stenosis is present. Ansgniii-gv-rasbkv tricuspid regurgitation. ASSESSMENT: 1. Status post fall from standing on Coumadin. 2. Left open distal humerus fracture, status post repair. 3. Left-sided AV fistula failure, status post replacement, right upper extremity. 4. Atrial fibrillation with rapid ventricular response, now rate controlled. 5. Fjr-HM-udcmqmfzv myocardial infarction, troponins improving, no longer trending. 6. Acute hyperphosphatemia. 7. Acute blood loss anemia, stable. 8. History of diabetes; end-stage renal disease, on dialysis; gastroesophageal reflux disease; aortic valve disease; human immunodeficiency virus. PLAN: Continue current diet and pain regimen. Continue 1 L fluid restriction. Add Nepro to diet t.i.d. The patient is accepted to [facility] in [place] for evaluation for possible urgent TAVR as he is not able to complete dialysis due to hypotension. Cardiology is recommending transfer to facility who can manage his aortic stenosis. We have reached out to Dr. Hodge to update him that the patient is not going to [facility] until his COVID test result arrives. This patient was seen and evaluated by Dr. Min and myself this morning during rounds. Job ID: [id number] [facility]
[2019-12-21] MEDS: Montelukast Sodium 10 mg Tablet PO SCH (20:20)
[2019-12-21] MEDS: Atorvastatin Calcium 40 MG TAB PO SCH (20:20)
[2019-12-21] MEDS: Melatonin 3 MG TAB PO SCH (20:20)
[2019-12-21] MEDS: DOLUTEGRAVIR SODIUM 50 MG PO SCH (20:20)
[2019-12-22] MEDS: Acetaminophen 500 MG TAB PO SCH ×4 (00:04→18:01)
[2019-12-22] MEDS: Hydrocortisone Sod Succ/PF 100 mg/2 ml Vial IVP SCH ×4 (00:04→18:02)
--- NOTE | 2019-12-22 01:30 | PRG ---
DATE OF SERVICE: 12/21/2019 SUBJECTIVE: The patient was seen during evening rounds in the intermediate care unit, sitting up in the chair. The patient denies any nausea at this time. The patient's appetite has improved. The patient does state that it is hard for him to swallow food as it feels like it is going to come back up. The patient had similar symptoms in the past and had a negative upper GI scan. The patient's pain is well controlled at this time, although he does complain of some mild burning sensation to his left arm. OBJECTIVE: VITAL SIGNS: Stable, afebrile. GENERAL: Well-appearing, middle-aged male, sitting up in the chair, in no acute distress. PULMONARY: Equal chest rise and fall. Respirations are even and nonlabored. CARDIAC: Irregular rate, irregular rhythm. ABDOMEN: Distended, but soft and nontender. EXTREMITIES: Moves all extremities. Cap refill less than 2 seconds. Left upper extremity, the patient's splint is clean, dry, and intact. NEUROLOGIC: GCS 15, no focal deficits. LABORATORY DATA: The patient's COVID-19 screen is pending. ASSESSMENT: 1. Status post fall from standing, on Coumadin. 2. Left open distal humerus fracture, status post repair. 3. Left-sided arteriovenous fistula failure, status post replacement in the right upper extremity. 4. Atrial fibrillation, rate controlled. 5. Acute hyperphosphatemia. 6. Acute blood loss anemia, stable. 7. History of diabetes; end-stage renal disease, on dialysis; esophageal reflux disease; aortic valve disease; and human immunodeficiency virus. PLAN: Continue current diet and pain regimen. The patient has been accepted to [facility] pending his COVID-19 screen. Once results are in, the patient can be transferred to [facility] for evaluation for possible urgent TAVR as he is not able to complete dialysis due to his hypotension. The plan was discussed with the patient, who agrees. Job ID: [id number]
[2019-12-22 03:21] LABS: #Eosinphils 0.1 thou/uL (0.0-0.7); #Lymphocytes 0.8 thou/uL (1.20-3.40); #Monocytes 0.9 thou/uL (0.11-0.59); #Neutrophils 8.9 thou/uL (1.40-6.50); %Basophils 0.1 % (0.0-1.0); %Eosinophils 0.6 % (0.0-10.0); %Lymphocytes 7.6 % (21.0-51.0); %Neutrophils 83.8 % (42.0-75.0); Hemoglobin 7.8 g/dL (14.0-18.0); Mean Corpuscular HGB CONC 32.7 g/dL (32.0-36.0); Mean Corpuscular Hemoglobin 30.2 pg (27.0-31.0); Mean Corpuscular Volume 92.3 fL (78.0-98.0); Mean Platelet Volume 8.3 fL (7.4-10.4); Platelet Count 150 thou/uL (130-400); RBC Distribution Width 17.3 % (11.5-14.5); Red Blood Cell (RBC) Count 2.58 mill/uL (4.70-6.10); White Blood Cell (WBC) Count 10.6 thou/uL (4.8-10.8)
[2019-12-22 03:29] LABS: Prothrombin Time 46.4 sec (12.0-14.7)
[2019-12-22 03:35] LABS: INR-International Normal Ratio 5.1
[2019-12-22 04:10] LABS: Anion Gap 28 mmol/L (10-20); BUN (Urea Nitrogen) 119 mg/dL (8.4-25.7); Calc. Creatinine Clearance 12 mL/min (70-130); Calcium 7.7 mg/dL (7.8-10.44); Carbon Dioxide 20 mmol/L (22-29); Chloride 87 mmol/L (98-107); Estimated GFR-MDRD 5; Glucose 132 mg/dL (70-105); Magnesium 2.5 mg/dL (1.6-2.6); Potassium 4.6 mmol/L (3.5-5.1); Sodium 130 mmol/L (136-145)
[2019-12-22 04:13] LABS: Phosphorus 10.5 mg/dL (2.3-4.7)
[2019-12-22] MEDS ORDERED: Midodrine HCl 5 MG TAB PO SCH ×2 (05:00→09:00)
[2019-12-22] MEDS: Mometasone 200 MCG/Formoterol 5 MCG 120 PUFF INHALER INH SCH ×2 (07:04→18:46)
--- NOTE | 2019-12-22 07:32 | PRG ---
DATE OF SERVICE: 12/22/2019 SUBJECTIVE: Mr. Stanley is awake and alert, feels okay. No complaints of chest pain. He is breathing okay. OBJECTIVE: VITAL SIGNS: His blood pressure is reported 90/70, pulse is 100. LUNGS: Clear. CARDIAC: There is a high-pitched systolic murmur of aortic stenosis. ABDOMEN: Soft, nontender. EXTREMITIES: Moderate edema. ASSESSMENT: 1. Aortic stenosis. 2. End-stage renal disease. 3. Chronic atrial fibrillation. PLAN: Arrangements were being made to transfer to [facility] for transcutaneous valve. Job ID: [id number]
[2019-12-22] MEDS: HumaLOG 300 UNITS/3 ML VIAL SC SCH ×3 (08:00→17:59)
[2019-12-22] MEDS: Metoprolol Tartrate 25 MG TAB PO SCH (09:00)
[2019-12-22] MEDS: Insulin Glargine 65 UNITS in Pre-Filled Syringe SC SCH (09:00)
[2019-12-22] MEDS: Sevelamer Carbonate 800 MG TAB PO SCH ×4 (11:58→18:00)
[2019-12-22] MEDS: Icosapent Ethyl 1 GM CAPSULE PO SCH ×2 (11:59→17:57)
[2019-12-22] MEDS: Gabapentin 300 MG CAP PO SCH (12:00)
[2019-12-22] MEDS: Folic Acid/Vit B Comp W-C PO SCH (12:00)
[2019-12-22] MEDS: Amiodarone 200 MG TAB PO SCH (12:00)
[2019-12-22] MEDS: Furosemide 80 MG TAB PO SCH (12:01)
[2019-12-22] MEDS: Pantoprazole 40 MG VIAL IVP SCH (12:02)
[2019-12-22] MEDS: FLUoxetine HCl 20 MG CAP PO SCH (12:09)
--- NOTE | 2019-12-22 14:34 | PRG ---
DATE OF SERVICE: 12/22/2019 SUBJECTIVE: A 59-year-old gentleman, being seen for end-stage renal disease. The patient remains hypotensive. PHYSICAL EXAMINATION: GENERAL: The patient is awake and alert. VITAL SIGNS: Afebrile, pulse 75, breathing at 16, blood pressure 75/48. HEENT: Head, normocephalic and atraumatic. Eyes intact, no ulcers. Nose intact, no ulcers. Ears intact, no ulcers. Neck: Supple. No JVD. Chest: Symmetrical and clear. Cardiovascular: Shows S1 and S2, no rub, no murmur. Gastrointestinal: Abdomen is soft, bowel sounds positive. Extremities: Show no edema or ulcers. Skin: Shows no rash or petechiae. Musculoskeletal: Shows no joint swelling or stiffness. Genitourinary: Shows no Nicholson or CVA tenderness. Neurologic: Motor intact. Cranial nerves intact. LABORATORY DATA: Hemoglobin 7.8. Creatinine 4.6. ASSESSMENT AND PLAN: 1. Stage 6 chronic kidney disease. We will plan dialysis once the patient's blood pressure improves. 2. Hypotension. We would recommend starting pressors. 3. Anemia, stable. 4. Medication based on GFR appropriate. 5. Hyperphosphatemia. We would recommend starting binders with meals. The patient will require continuous venovenous hemodialysis if the blood pressure does not come up. I would recommend starting the patient on pressors and initiating dialysis if the patient Job ID: [id number]
[2019-12-22 15:21] VITALS: TEMP 96.8
[2019-12-22] MEDS ORDERED: DOPamine 400 MG/D5W 250 ML 250 ML IVPB SCH (16:15)
--- NOTE | 2019-12-22 17:01 | PRG ---
DATE OF SERVICE: 12/22/2019 SUBJECTIVE: The patient was seen this morning. He was sitting up in bed with no signs of acute distress. He described a burning-type sensation to his left forearm area. He is currently getting gabapentin for that nerve pain. The patient was pending a test result for COVID-19 as requested by [facility] in [place] in order to transfer him there for evaluation and management of severe aortic stenosis causing hypotension. The patient has not been dialyzed since Tuesday due to not being able to tolerate dialysis caused by hypotension. This afternoon we discovered that the COVID-19 test likely not result until tomorrow. Subsequently, Dr. Hodge and Dr. Min were updated as well as Dr. Hurst. The patient will receive dobutamine and be dialyzed today. OBJECTIVE: VITAL SIGNS: Temperature 98.2, pulse 105, respirations 16, oxygen saturation 95% on room air, blood pressure 62/30. GENERAL: Ill-appearing middle-aged male, sitting up in bed with no signs of acute distress. PULMONARY: Equal chest rise and fall. No signs of acute respiratory distress. CARDIAC: Irregular rate and irregular rhythm. He does have a mid systolic murmur. ABDOMEN: Distended and nontender. EXTREMITIES: 2+ pulses in all extremities. Gross motor and sensation intact. Left upper extremity with splint that is clean, dry, and intact. NEUROLOGIC: GCS is 15. LABORATORY FINDINGS: White count 10.6, hemoglobin 7.8, hematocrit 23.8, platelets 150. Sodium 130, potassium 4.6, chloride 87, bicarb 20, BUN 119, creatinine 11.61, glucose 132, calcium 7.7, phosphorus 10.5, magnesium 2.5. DIAGNOSTIC FINDINGS: There are no new diagnostic findings to report. ASSESSMENT: 1. Status post ground level fall, on Coumadin. 2. Left open distal humerus fracture, status post repair. 3. Atrial fibrillation with rapid ventricular response, rate controlled. 4. Wbt-AF-ypfgyuljf myocardial infarction, stable. 5. Hypotension secondary to heart failure caused by severe aortic stenosis requiring management at [facility] in [place]. 6. History of diabetes, end-stage renal disease, on dialysis, gastroesophageal reflux disease, aortic valve disease, and human immunodeficiency virus. PLAN: Continue current diet and pain regimen. Continue physical and occupational therapy because the patient's COVID result will not come back likely until tomorrow afternoon. Dr. Min has ordered dopamine at [address] Hodge was updated, who plans to complete dialysis today. Dr. Hurst was also updated and questions were answered. We will closely monitor the patient while on dopamine and being dialyzed. We will follow up the COVID-19 lab test tomorrow and we will transfer the patient to [facility] in [place] as soon it results so that he can have his aortic valve procedure. This patient was discussed with Dr. Min before this dictation. Job ID: [id number]
[2019-12-22 17:10] LABS: SARS-CoV-2 MS2 Positive; SARS-CoV-2 N Gene Negative; SARS-CoV-2 S Gene Negative; SARS-CoV-2 orf1ab Negative
[2019-12-22] MEDS: Darunavir/Cobicistat [Prezcobix 800 Mg-150 Mg Tablet] PO SCH (17:57)
--- NOTE | 2019-12-23 15:17 | DIS ---
DATE OF ADMISSION: 12/14/2019 DATE OF DISCHARGE: 12/22/2019 ADMISSION DIAGNOSES: 1. Mechanical fall, on Coumadin. 2. Left distal humerus fracture. DISCHARGE DIAGNOSES: 1. Mechanical fall, on Coumadin. 2. Left distal humerus fracture. 3. Atrial fibrillation. 4. Rvn-ML-nqidrqa elevation myocardial infarction. 5. Hypotension due to aortic valve stenosis. CONSULTING PHYSICIANS: 1. Dr. Carlisle of Orthopedic Surgery. 2. Dr. Hodge of Nephrology. 3. Dr. Love of General Surgery. 4. Dr. Ramirez of Cardiology. PROCEDURES: On 12/14, the patient went to the OR and had an I and D of the left open humerus fracture, ORIF of the left open humerus fracture. He also had a left femoral Trialysis catheter, placed on December 14. On December 16, he went back to the OR for AV fistula placement on the right upper extremity. HOSPITAL COURSE: The patient is a 59-year-old male who had a fall on Coumadin. Upon arrival to the emergency department, he had a left open distal humerus fracture for which he went to the OR with Dr. Carlisle. The patient has an AV fistula in that arm and subsequently clotted off, and he has end-stage renal disease, requiring dialysis. A Trialysis catheter was placed for dialysis into his left femoral vein. Subsequently on December 16, he went to the OR and had a new AV fistula placed on his right upper extremity. Postoperatively, he has a history of atrial fibrillation, but he went to rapid ventricular response. He was rate controlled with amiodarone. Throughout his hospital course, the patient had progressively worsening hypotension due to severe aortic stenosis. The patient had already planned to have a TAVR procedure this week, which was subsequently canceled due to the trauma. The patient was eventually not able to complete dialysis due to hypotension and Dr. Suresh, who is his primary line dancer, was contacted. He recommended that the patient be transferred to [facility] for urgent TAVR procedure. DISCHARGE DISPOSITION: [facility] in [place]. DISCHARGE CONDITION: Satisfactory. DISCHARGE INSTRUCTIONS: The patient was discharged to a hospital [facility] in [place]. He is nonweightbearing on left upper extremity. No range of motion. Diabetic and renal diet. Nepro t.i.d. Physical and Occupational Therapy. Walker, wheelchair, incentive spirometry, and oxygen p.r.n. DISCHARGE MEDICATIONS: Included: 1. Tylenol No. 3. 2. Amiodarone. 3. Atorvastatin. 4. Symbicort. 5. Prezcobix. 6. Tivicay. 7. Fluoxetine. 8. Folic acid. 9. Vitamin B. 10. Lasix. 11. Gabapentin. 12. Solu-Cortef. 13. Atarax. 14. Vascepa. 15. NovoLog. 16. Insulin glargine. 17. DuoNebs. 18. Melatonin. 19. Metoprolol. 20. Midodrine. 21. Singulair. 22. Zofran. 23. Protonix. 24. Phenergan. 25. Renvela. 26. Simethicone. 27. Coumadin. FOLLOWUP APPOINTMENTS: The patient should follow up with Dr. Carlisle of Orthopedic Surgery for his humerus fracture, also follow up with Dr. Love for his right upper extremity AV fistula in 3 to 4 weeks. No followup is needed with Orthopedic Surgery. No followup is needed with Trauma Surgery. This is a summary of the patient's hospitalization. For full details, please see his medical record in its entirety. Job ID: [id number]
--- NOTE | 2019-12-23 16:12 | EKG ---
Test Reason : CODE GREEN Blood Pressure : / mmHG Vent. Rate : 102 BPM Atrial Rate : 105 BPM P-R Int : 000 ms QRS Dur : 168 ms QT Int : 456 ms P-R-T Axes : 000 015 117 degrees QTc Int : 594 ms Atrial fibrillation with rapid ventricular response Left bundle branch block Abnormal ECG When compared with ECG of 15-DEC-2019 08:07, Atrial fibrillation has replaced Wide QRS rhythm Confirmed by MARGY COOK (2) on 12/23/2019 4:11:58 PM Referred By: LENORA Confirmed By:MARGY COOK
== END 2019-12-22 19:40 | disposition short-term general hospital (02) | DRG 492 ==
LOC: ERS 16:40 → SURG A 18:30 → 2NO 12-15 08:52 → CCU 12-15 09:13 → 2NO 12-17 11:05 → SURG A 12-19 12:46 → IMCU/EMU 12-20 18:09
PROVIDERS: ADMIT Specialist; ATTEND Specialist
PROC: 30233N1 Transfusion of Nonautologous Red Blood Cells into Peripheral Vein, Percutaneous Approach (ICD-10-PCS; 2019-12-14)
PROC: 0PH Upper Bones, Insertion (ICD-10-PCS; principal; 2019-12-15)
PROC: 5A1D70Z Performance of Urinary Filtration, Intermittent, Less than 6 Hours Per Day (ICD-10-PCS; 2019-12-15)
PROC: 06HY33Z Insertion of Infusion Device into Lower Vein, Percutaneous Approach (ICD-10-PCS; 2019-12-15)
PROC: 3E033XZ Introduction of Vasopressor into Peripheral Vein, Percutaneous Approach (ICD-10-PCS; 2019-12-15)
PROC: 0PUG07Z Supplement Left Humeral Shaft with Autologous Tissue Substitute, Open Approach (ICD-10-PCS; 2019-12-15)
PROC: 031B0ZF Bypass Right Radial Artery to Lower Arm Vein, Open Approach (ICD-10-PCS; 2019-12-17)
PROC: 02H633Z Insertion of Infusion Device into Right Atrium, Percutaneous Approach (ICD-10-PCS; 2019-12-17)
PROC: B518ZZA Fluoroscopy of Superior Vena Cava, Guidance (ICD-10-PCS; 2019-12-17)
PROC: B548ZZA Ultrasonography of Superior Vena Cava, Guidance (ICD-10-PCS; 2019-12-17)
PROC: 0JH63XZ Insertion of Tunneled Vascular Access Device into Chest Subcutaneous Tissue and Fascia, Percutaneous Approach (ICD-10-PCS; 2019-12-17)
PROC: 8E0ZXY6 Isolation (ICD-10-PCS; 2019-12-21)
DX: S42.492B Other displaced fracture of lower end of left humerus, initial encounter for open fracture (principal); N18.6 End stage renal disease; I21.A1 Myocardial infarction type 2; Z20.828 Contact with and (suspected) exposure to other viral communicable diseases; I48.20 Chronic atrial fibrillation, unspecified; I13.2 Hypertensive heart and chronic kidney disease with heart failure and with stage 5 chronic kidney disease, or end stage renal disease; T82.868A Thrombosis due to vascular prosthetic devices, implants and grafts, initial encounter; T82.590A Other mechanical complication of surgically created arteriovenous fistula, initial encounter; D62 Acute posthemorrhagic anemia; Z68.41 Body mass index [BMI] 40.0-44.9, adult; E11.22 Type 2 diabetes mellitus with diabetic chronic kidney disease; I35.0 Nonrheumatic aortic (valve) stenosis; K21.9 Gastro-esophageal reflux disease without esophagitis; W01.0XXA Fall on same level from slipping, tripping and stumbling without subsequent striking against object, initial encounter; Z21 Asymptomatic human immunodeficiency virus [HIV] infection status; I25.10 Atherosclerotic heart disease of native coronary artery without angina pectoris; E83.39 Other disorders of phosphorus metabolism; Y83.2 Surgical operation with anastomosis, bypass or graft as the cause of abnormal reaction of the patient, or of later complication, without mention of misadventure at the time of the procedure; E87.5 Hyperkalemia; E66.01 Morbid (severe) obesity due to excess calories; D63.1 Anemia in chronic kidney disease; I50.9 Heart failure, unspecified; E87.70 Fluid overload, unspecified; R11.2 Nausea with vomiting, unspecified; I44.7 Left bundle-branch block, unspecified; I95.89 Other hypotension; Z99.2 Dependence on renal dialysis; Z79.01 Long term (current) use of anticoagulants; Z88.0 Allergy status to penicillin; Z88.2 Allergy status to sulfonamides; Z79.899 Other long term (current) drug therapy; Z79.4 Long term (current) use of insulin; Z79.82 Long term (current) use of aspirin
CPT/HCPCS: 36415; 36416; 36430; 51702; 70450; 71045; 71260; 72125; 74177; 76000; 80048; 80053; 81001; 82140; 82533; 82550; 82553; 83605; 83735; 83880; 84100; 84484; 85007; 85025; 85027; 85610; 85730; 86704; 86706; 86803; 86850; 86870; 86900; 86901; 87040; 87070; 87077; 87186; 87205; 87340; 87635; 90471; 90715; 90935; 93005; 93010; 93306; 93970; 94640; 96365; 96366; 96367; 96368; 96375; C1713; C1752; C1769; C9113; C9132; G0257; G0365; G0390; J0282; J0690; J0696; J1265; J1642; J1644; J1720; J1815; J1885; J1956; J2001; J2310; J2405; J2704; J2720; J3010; J3430; J3490; J7070; J7620; P9016; P9045; P9047; Q0162; Q9967; S0020; U0003